=== PATIENT | female | born 1935 | race Caucasian/White ===

== ENCOUNTER 2017-05-19 09:15 | Emergency (ER) | payer MEDICARE, BC, MEDICAID ==
--- NOTE | 2017-05-19 09:17 | EDM.PDOC ---
ED HPI GENERAL MEDICAL PROBLEM - General Chief Complaint: Respiratory Problem Stated Complaint: IN BY AMBULANCE Time Seen by Provider: 05/19/17 09:17 Source of Information: Reports: Patient, EMS, Old Records, RN, RN Notes Reviewed History Limitations: Reports: No Limitations - History of Present Illness INITIAL COMMENTS - FREE TEXT/NARRATIVE: Arrives from [facility] by ambulance with c/o several days of progressively worsening shortness of breath. Pt admits to a "slight" cough. NH staff found pt to have oxygen saturations in the low 80's today, and they reported increasing lower extremity edema. Pt denies any pain, fever, chills, or any symptoms other than shortness of breath. Onset: Gradual Duration: Day(s): (3-5), Constant, Getting Worse Location: Reports: Chest Quality: Reports: Other (denies pain) Severity: Moderate Improves with: Reports: None Worsens with: Reports: None Associated Symptoms: Reports: No Other Symptoms Treatments STAFF RADIOGRAPHER: Reports: Breathing Treatments, Other Medication(s), Oxygen - Related Data Allergies Allergy/AdvReac Type Severity Reaction Status Date / Time furosemide [From Lasix] AdvReac Mild Nausea and Verified 11/29/14 11:53 Vomiting Home Meds: Home Meds Bumetanide [Bumex] 1 mg PO DAILY 10/27/13 [History] Carvedilol [Coreg] 12.5 mg PO BID 10/27/13 [History] Enalapril Maleate 5 mg PO DAILY 10/27/13 [History] Rosuvastatin Calcium [Crestor] 2.5 mg PO BEDTIME 10/27/13 [History] traZODone 100 mg PO BEDTIME 10/27/13 [History] Calcium Carbonate/Vitamin D3 [Calcium 600 + Vit D Tablet] 1 each PO DAILY [History] Acetaminophen [Tylenol] 650 mg PO Q4HR PRN 07/18/14 [History] Albuterol Sulfate 1 inhalation INH Q4HR PRN 07/18/14 [History] Clopidogrel [Plavix] 75 mg PO DAILY 07/18/14 [History] Famotidine 20 mg PO DAILY 07/18/14 [History] Cefpodoxime [Vantin] 200 mg PO BID #14 tab 07/22/14 [Rx] LORazepam [Ativan] 0.25 mg PO TID PRN #30 tablet 07/22/14 [Rx] predniSONE [predniSONE Dose Pack] 10 mg PO ASDIRECTED #12 dospk 07/22/14 [Rx] Acetaminophen [Tylenol] 650 mg PO Q4H 11/29/14 [History] Azithromycin [Zithromax] 250 mg PO DAILY 11/29/14 [History] Calcium Carbonate/Vitamin D3 [Calcium 500 mg Chewable Tablet] 500 mg PO DAILY PRN 11/29/14 [History] Loperamide [Imodium] 2 mg PO DAILY 11/29/14 [History] Sertraline [Zoloft] 50 mg PO DAILY 11/29/14 [History] Simethicone 1 tab PO TID 11/29/14 [History] Aspirin [Ecotrin] 1 tab PO DAILY #30 12/01/14 [Rx] Levofloxacin [Levaquin] 250 mg PO Q24H #7 tablet 12/01/14 [Rx] Metolazone [Zaroxolyn] 2.5 mg PO WEEKLY #4 tablet 12/01/14 [Rx] Past Medical History HEENT History: Reports: Hard of Hearing, Impaired Vision Cardiovascular History: Reports: CAD, Heart Failure, Hypertension, SOB on Exertion Respiratory History: Reports: COPD Musculoskeletal History: Reports: Osteoarthritis Psychiatric History: Reports: Dementia Social & Family History - Family History Family Medical History: Noncontributory - Tobacco Use Smoking Status *Q: Former Smoker Tobacco Use Within Last Twelve Months: Cigarettes Years of Tobacco use: 30 Packs/Tins Daily: 1 Used Tobacco, but Quit: Yes Month Tobacco Last Used: Second Hand Smoke Exposure: No - Alcohol Use Days Per Week of Alcohol Use: 0 - Recreational Drug Use Recreational Drug Use: No - Living Situation & Occupation Living situation: Reports: Extended Care Facility Occupation: Retired ED ROS GENERAL - Review of Systems Review Of Systems: ROS reveals no pertinent complaints other than HPI. ED EXAM, GENERAL - Physical Exam Exam: See Below Exam Limited By: No Limitations General Appearance: Alert, No Apparent Distress, Other (frail, elderly appearing female) Eye Exam: Bilateral Eye: Normal Inspection Ears: Normal External Exam, Hearing Loss (chronic/stable) Nose: Normal Inspection, Normal Mucosa, No Blood Throat/Mouth: Normal Inspection, Normal Lips, Normal Teeth, Normal Gums, Normal Oropharynx, Normal Voice, No Airway Compromise Head: Atraumatic, Normocephalic Neck: Normal Inspection, Supple, Non-Tender, Full Range of Motion. No: Lymphadenopathy (L), Lymphadenopathy (R) Respiratory/Chest: No Respiratory Distress, No Accessory Muscle Use, Chest Non- Tender, Decreased Breath Sounds, Crackles, Rales, Wheezing, Prolonged Expiration. No: Retractions, Splinting Cardiovascular: Regular Rate, Rhythm, No Gallop, No JVD, Other (1+ edema to B/L feet and ankles) GI/Abdominal: Normal Bowel Sounds, Soft, Non-Tender, No Distention, No Abnormal Bruit (Female) Exam: Deferred Rectal (Female) Exam: Deferred Back Exam: Normal Inspection. No: CVA Tenderness (L), CVA Tenderness (R) Extremities: Normal Range of Motion, Non-Tender Neurological: Alert, Oriented, CN II-XII Intact, No Motor/Sensory Deficits Psychiatric: Normal Mood Skin Exam: Warm, Dry, Intact, Normal Color, No Rash EKG INTERPRETATION EKG Date: 05/19/17 Time: 09:47 Rhythm: Other (Paced) Rate (Beats/Min): 70 Comparison: No Change Course - Vital Signs Last Recorded V/S: Last Vital Signs Temp 36.4 C 05/19/17 11:27 Pulse 71 05/19/17 11:27 Resp 18 05/19/17 11:27 BP 118/56 L 05/19/17 11:27 Pulse Ox 100 05/19/17 11:27 - Orders/Labs/Meds Orders: Active Orders 24 hr Category Date Time Status EKG 12 Lead [EKG Documentation Completion] [RC] STAT Care 05/19/17 09:24 Active Peripheral IV Care [RC] . DIRECTED Care 05/19/17 09:25 Active RT Aerosol Therapy [RC] ASDIRECTED Care 05/19/17 09:25 Active CULTURE BLOOD [BC] Stat Lab 05/19/17 09:38 Results CULTURE BLOOD [BC] Stat Lab 05/19/17 09:44 Received Sodium Chloride 0.9% [Saline Flush] Med 05/19/17 09:24 Active 10 ml FLUSH ASDIRECTED PRN Blood Culture x2 Reflex Set [OM.PC] Stat Oth 05/19/17 09:25 Ordered Peripheral IV Insertion Adult [OM.PC] Stat Oth 05/19/17 09:24 Ordered Medication Orders Sodium Chloride (Saline Flush) 10 ml FLUSH ASDIRECTED PRN PRN Reason: Keep Vein Open Last Admin: 05/19/17 09:43 Dose: 10 ml Labs: Laboratory Tests 05/19/17 05/19/17 05/19/17 Range/Units 09:44 09:44 09:44 WBC 9.0 (5.0-10.0) 10^3/uL RBC 3.30 L (4.2-5.4) 10^6/uL Hgb 11.0 L (12.0-16.0) g/dL Hct 34.2 L (37.0-47.0) % MCV 103.6 H D (80-100) fL MCH 33.3 (27.0-34.0) pg MCHC 32.2 L (33.0-35.0) g/dL Plt Count 166 D (150-450) 10^3/uL Neut % (Auto) 79.3 H (42.2-75.2) % Lymph % (Auto) 8.5 L (20.5-50.1) % [place] % (Auto) 10.3 H (2-8) % Eos % (Auto) 1.7 (1.0-3.0) % Baso % (Auto) 0.2 (0.0-1.0) % Sodium 132 L (135-145) mmol/L Potassium 3.9 (3.6-5.0) mmol/L Chloride 90 L (101-111) mmol/L Carbon Dioxide 35.0 H (21.0-31.0) mmol/L Anion Gap 10.9 BUN 42 H (7-18) mg/dL Creatinine 1.4 H (0.6-1.3) mg/dL Est Cr Clr Drug Dosing 28.00 mL/min Estimated GFR (MDRD) 36 BUN/Creatinine Ratio 30.00 Glucose 108 H (74-105) mg/dL Lactic Acid 0.8 (0.5-2.2) mmol/L Calcium 9.9 (8.4-10.2) mg/dl Total Bilirubin 0.8 (0.2-1.0) mg/dL AST 17 (10-42) IU/L ALT 10 (10-60) IU/L Alkaline Phosphatase 59 (42-121) IU/L B-Natriuretic Peptide 364 H (0-100) pg/ml Total Protein 6.4 L (6.7-8.2) g/dl Albumin 3.9 (3.2-5.5) g/dl Globulin 2.5 Albumin/Globulin Ratio 1.56 Urine Color (YELLOW) Urine Appearance (CLEAR) Urine pH (5.0-9.0) Ur Specific [place] (1.005-1.030) Urine Protein (NEGATIVE) Urine Glucose (UA) (NEGATIVE) Urine Ketones (NEGATIVE) Urine Occult Blood (NEGATIVE) Urine Nitrite (NEGATIVE) Urine Bilirubin (NEGATIVE) Urine Urobilinogen (0.2-1.0) mg/dL Ur Leukocyte Esterase (NEGATIVE) Urine RBC /HPF Urine WBC (0-5/HPF) /HPF Ur Epithelial Cells /HPF Urine Bacteria (0-FEW/HPF) /HPF Urine Mucus /LPF 05/19/17 Range/Units 11:18 WBC (5.0-10.0) 10^3/uL RBC (4.2-5.4) 10^6/uL Hgb (12.0-16.0) g/dL Hct (37.0-47.0) % MCV (80-100) fL MCH (27.0-34.0) pg MCHC (33.0-35.0) g/dL Plt Count (150-450) 10^3/uL Neut % (Auto) (42.2-75.2) % Lymph % (Auto) (20.5-50.1) % [place] % (Auto) (2-8) % Eos % (Auto) (1.0-3.0) % Baso % (Auto) (0.0-1.0) % Sodium (135-145) mmol/L Potassium (3.6-5.0) mmol/L Chloride (101-111) mmol/L Carbon Dioxide (21.0-31.0) mmol/L Anion Gap BUN (7-18) mg/dL Creatinine (0.6-1.3) mg/dL Est Cr Clr Drug Dosing mL/min Estimated GFR (MDRD) BUN/Creatinine Ratio Glucose (74-105) mg/dL Lactic Acid (0.5-2.2) mmol/L Calcium (8.4-10.2) mg/dl Total Bilirubin (0.2-1.0) mg/dL AST (10-42) IU/L ALT (10-60) IU/L Alkaline Phosphatase (42-121) IU/L B-Natriuretic Peptide (0-100) pg/ml Total Protein (6.7-8.2) g/dl Albumin (3.2-5.5) g/dl Globulin Albumin/Globulin Ratio Urine Color Yellow (YELLOW) Urine Appearance Clear (CLEAR) Urine pH 6.0 (5.0-9.0) Ur Specific [place] 1.010 (1.005-1.030) Urine Protein Negative (NEGATIVE) Urine Glucose (UA) Negative (NEGATIVE) Urine Ketones Negative (NEGATIVE) Urine Occult Blood Negative (NEGATIVE) Urine Nitrite Negative (NEGATIVE) Urine Bilirubin Negative (NEGATIVE) Urine Urobilinogen 0.2 (0.2-1.0) mg/dL Ur Leukocyte Esterase Negative (NEGATIVE) Urine RBC 0-5 /HPF Urine WBC 0-5 (0-5/HPF) /HPF Ur Epithelial Cells Few /HPF Urine Bacteria Rare (0-FEW/HPF) /HPF Urine Mucus Rare /LPF Meds: Medications Generic Name Dose Route Start Last Admin Trade Name Fregifty PRN Reason Stop Dose Admin Sodium Chloride 10 ml 05/19/17 09:24 05/19/17 09:43 Saline Flush FLUSH 10 ml ASDIRECTED PRN Administration Keep Vein Open Discontinued Medications Generic Name Dose Route Start Last Admin Trade Name Fregifty PRN Reason Stop Dose Admin Albuterol/Ipratropium 3 ml 05/19/17 09:25 05/19/17 09:42 Duoneb 3.0-0.5 Mg/3 Ml NEB 05/19/17 09:26 3 ml ONETIME ONE Administration Methylprednisolone Sodium Succinate 125 mg 05/19/17 09:25 05/19/17 09:42 Solu-Medrol IVPUSH 05/19/17 09:26 125 mg ONETIME ONE Administration - Radiology Interpretation Free Text/Narrative:: CXR: No acute process. Departure - Departure Time of Disposition: 12:32 Disposition: Home, Self-Care 01 Condition: Fair Clinical Impression: Acute exacerbation of chronic obstructive pulmonary disease (COPD) - Discharge Information Instructions: Chronic Obstructive Pulmonary Disease Exacerbation, [id number] Forms: ED Department Discharge Additional Instructions: Discharge orders provided to the [facility] by Dr. Kong. - My Orders Last 24 Hours: My Active Orders 05/19/17 09:24 EKG 12 Lead [EKG Documentation Completion] [RC] STAT Sodium Chloride 0.9% [Saline Flush] 10 ml FLUSH ASDIRECTED PRN Peripheral IV Insertion Adult [OM.PC] Stat 05/19/17 09:25 Peripheral IV Care [RC] . DIRECTED RT Aerosol Therapy [RC] ASDIRECTED Blood Culture x2 Reflex Set [OM.PC] Stat 05/19/17 09:38 CULTURE BLOOD [BC] Stat 05/19/17 09:44 CULTURE BLOOD [BC] Stat - Assessment/Plan Last 24 Hours: My Active Orders 05/19/17 09:24 EKG 12 Lead [EKG Documentation Completion] [RC] STAT Sodium Chloride 0.9% [Saline Flush] 10 ml FLUSH ASDIRECTED PRN Peripheral IV Insertion Adult [OM.PC] Stat 05/19/17 09:25 Peripheral IV Care [RC] . DIRECTED RT Aerosol Therapy [RC] ASDIRECTED Blood Culture x2 Reflex Set [OM.PC] Stat 05/19/17 09:38 CULTURE BLOOD [BC] Stat 05/19/17 09:44 CULTURE BLOOD [BC] Stat
[2017-05-19] MEDS ORDERED: Sodium Chloride 0.9% 10 ML Syringe FLUSH PRN (09:24)
[2017-05-19] MEDS ORDERED: Albuterol/Ipratropium 3.0-0.5 MG/3 ML Neb Soln NEB ONE (09:25)
[2017-05-19] MEDS ORDERED: methylPREDNISolone Sodium Succinate 125 MG/2 ML SDV IVPUSH ONE (09:25)
[2017-05-19 11:27] VITALS: BP 118/56
--- NOTE | 2017-05-25 18:16 | EKG ---
05/19/2017 - LEO CORMIER - FINDINGS: This 12-lead EKG shows a ventricular-paced rhythm with a ventricular rate of 70. No other comments are made. [facility] /[id number]
== END 2017-05-19 12:40 | disposition home or self-care (01) ==
LOC: DL.ED 09:15
DX: J44.1 Chronic obstructive pulmonary disease with (acute) exacerbation (principal); I11.0 Hypertensive heart disease with heart failure; I50.9 Heart failure, unspecified; Z91.040 Latex allergy status; Z79.899 Other long term (current) drug therapy; Z79.82 Long term (current) use of aspirin; Z87.891 Personal history of nicotine dependence
CPT/HCPCS: 36415; 71010; 80053; 81001; 83605; 83880; 85025; 87040; 93005; 93010; 94640; 96374; 99285; J2930; J7050; 99284

== ENCOUNTER 2017-06-15 10:33 | Inpatient (IN) | payer MEDICARE, BC, MEDICAID ==
[2017-06-15] MEDS ORDERED: Albuterol/Ipratropium 3.0-0.5 MG/3 ML Neb Soln NEB ONE (11:05)
--- NOTE | 2017-06-15 11:19 | EDM.PDOC ---
ED HPI GENERAL MEDICAL PROBLEM - General Stated Complaint: FROM [facility] Time Seen by Provider: 06/15/17 11:05 Source of Information: Reports: Half-Way Records, RN History Limitations: Reports: Altered Mental Status - History of Present Illness INITIAL COMMENTS - FREE TEXT/NARRATIVE: This 82 yo female patient was sent to the from [facility] due to increased sickness and diminished level of consciousness. The patient was seen last week by Tania Torre. Last week, the patient's influenza swab was negative , but the patient was started on Tamiflu. The patient has continued to get worse over the weekend. According to the [facility], the patient's oxygen level has been in the lower 80's until she was started on oxygen. The patient has not been responding normally today. Onset: Gradual Duration: Day(s):, Constant, Getting Worse Location: Reports: Generalized Quality: Reports: Other Severity: Severe Improves with: Reports: None Worsens with: Reports: None Associated Symptoms: Reports: Shortness of Breath, Weakness - Related Data Allergies Allergy/AdvReac Type Severity Reaction Status Date / Time furosemide [From Lasix] AdvReac Mild Nausea and Verified 11/29/14 11:53 Vomiting Home Meds: Home Meds Bumetanide [Bumex] 1 mg PO DAILY 10/27/13 [History] Carvedilol [Coreg] 12.5 mg PO BID 10/27/13 [History] Enalapril Maleate 5 mg PO DAILY 10/27/13 [History] Rosuvastatin Calcium [Crestor] 2.5 mg PO BEDTIME 10/27/13 [History] traZODone 100 mg PO BEDTIME 10/27/13 [History] Calcium Carbonate/Vitamin D3 [Calcium 600 + Vit D Tablet] 1 each PO DAILY [History] Acetaminophen [Tylenol] 650 mg PO Q4HR PRN 07/18/14 [History] Albuterol Sulfate 1 inhalation INH Q4HR PRN 07/18/14 [History] Clopidogrel [Plavix] 75 mg PO DAILY 07/18/14 [History] Famotidine 20 mg PO DAILY 07/18/14 [History] Cefpodoxime [Vantin] 200 mg PO BID #14 tab 07/22/14 [Rx] LORazepam [Ativan] 0.25 mg PO TID PRN #30 tablet 07/22/14 [Rx] predniSONE [predniSONE Dose Pack] 10 mg PO ASDIRECTED #12 dospk 07/22/14 [Rx] Acetaminophen [Tylenol] 650 mg PO Q4H 11/29/14 [History] Azithromycin [Zithromax] 250 mg PO DAILY 11/29/14 [History] Calcium Carbonate/Vitamin D3 [Calcium 500 mg Chewable Tablet] 500 mg PO DAILY PRN 11/29/14 [History] Loperamide [Imodium] 2 mg PO DAILY 11/29/14 [History] Sertraline [Zoloft] 50 mg PO DAILY 11/29/14 [History] Simethicone 1 tab PO TID 11/29/14 [History] Aspirin [Ecotrin] 1 tab PO DAILY #30 12/01/14 [Rx] Metolazone [Zaroxolyn] 2.5 mg PO WEEKLY #4 tablet 12/01/14 [Rx] Past Medical History HEENT History: Reports: Hard of Hearing, Impaired Vision Cardiovascular History: Reports: CAD, Heart Failure, Hypertension, SOB on Exertion Respiratory History: Reports: COPD Gastrointestinal History: Reports: Chronic Constipation Musculoskeletal History: Reports: Osteoarthritis Psychiatric History: Reports: Dementia - Past Surgical History GI Surgical History: Reports: Appendectomy, Cholecystectomy Female Surgical History: Reports: Breast Biopsy, Hysterectomy Social & Family History - Family History Family Medical History: Noncontributory - Tobacco Use Smoking Status *Q: Former Smoker Years of Tobacco use: 30 Packs/Tins Daily: 1 Used Tobacco, but Quit: Yes Month Tobacco Last Used: Second Hand Smoke Exposure: No - Caffeine Use Caffeine Use: Reports: Coffee - Alcohol Use Days Per Week of Alcohol Use: 0 - Recreational Drug Use Recreational Drug Use: No - Living Situation & Occupation Living situation: Reports: Extended Care Facility Occupation: Retired ED ROS GENERAL - Review of Systems Review Of Systems: ROS reveals no pertinent complaints other than HPI. ED EXAM, GENERAL - Physical Exam Exam: See Below Exam Limited By: Altered Mental Status General Appearance: Lethargic, Severe Distress, Thin Eye Exam: Bilateral Eye: PERRL Ears: Normal External Exam, Normal Canal, Hearing Grossly Normal, Normal TMs Nose: Normal Inspection, Normal Mucosa, No Blood Throat/Mouth: Normal Inspection, Normal Lips, Normal Teeth, Normal Gums, Normal Oropharynx, Normal Voice, No Airway Compromise Head: Atraumatic, Normocephalic Neck: Normal Inspection Respiratory/Chest: Decreased Breath Sounds, Rhonchi (diffuse) Cardiovascular: Normal Peripheral Pulses, Regular Rate, Rhythm, No Gallop, No JVD, No Murmur, No Rub GI/Abdominal: Normal Bowel Sounds, Soft, Non-Tender, No Organomegaly, No Distention, No Abnormal Bruit, No Mass, Pelvis Stable (Female) Exam: Deferred Rectal (Female) Exam: Deferred Extremities: Pedal Edema (mild) Skin Exam: Warm, Dry, Intact, Normal Color, No Rash Lymphatic: No Adenopathy Course - Vital Signs Last Recorded V/S: Last Vital Signs Temp 36.5 C 06/15/17 10:04 Pulse 71 06/15/17 10:04 Resp 24 H 06/15/17 10:04 BP 123/61 06/15/17 10:04 Pulse Ox 52 L 06/15/17 10:04 - Orders/Labs/Meds Orders: Active Orders 24 hr Category Date Time Status RT Aerosol Therapy [RC] ASDIRECTED Care 06/15/17 11:05 Active CULTURE BLOOD [BC] Stat Lab 06/15/17 10:55 Results CULTURE BLOOD [BC] Stat Lab 06/15/17 10:58 Received Blood Culture x2 Reflex Set [OM.PC] Stat Oth 06/15/17 10:56 Ordered Labs: Laboratory Tests 06/15/17 06/15/17 06/15/17 Range/Units 10:58 10:58 10:58 WBC 10.2 H (5.0-10.0) 10^3/uL RBC 3.52 L (4.2-5.4) 10^6/uL Hgb 12.0 (12.0-16.0) g/dL Hct 36.9 L (37.0-47.0) % MCV 104.8 H (80-100) fL MCH 34.1 H (27.0-34.0) pg MCHC 32.5 L (33.0-35.0) g/dL Plt Count 276 D (150-450) 10^3/uL Neut % (Auto) 71.6 (42.2-75.2) % Lymph % (Auto) 13.1 L (20.5-50.1) % [place] % (Auto) 15.0 H (2-8) % Eos % (Auto) 0.1 L (1.0-3.0) % Baso % (Auto) 0.2 (0.0-1.0) % Add Manual Diff Yes Neutrophils % (Manual) 70 (42-75) % Band Neutrophils % 2 % Lymphocytes % (Manual) 17 L (20-50) % Atypical Lymphs % 2 % Monocytes % (Manual) 9 H (2-8) % Stomatocytes 3+ marked Sodium 141 (135-145) mmol/L Potassium 3.6 (3.6-5.0) mmol/L Chloride 92 L (101-111) mmol/L Carbon Dioxide 40.0 H (21.0-31.0) mmol/L Anion Gap 12.6 BUN 70 H D (7-18) mg/dL Creatinine 1.6 H (0.6-1.3) mg/dL Est Cr Clr Drug Dosing 23.55 mL/min Estimated GFR (MDRD) 31 BUN/Creatinine Ratio 43.75 Glucose 152 H (74-105) mg/dL Lactic Acid 1.8 (0.5-2.2) mmol/L Calcium 10.7 H (8.4-10.2) mg/dl Total Bilirubin 0.9 (0.2-1.0) mg/dL AST 33 (10-42) IU/L ALT 18 (10-60) IU/L Alkaline Phosphatase 59 (42-121) IU/L Troponin I (0.00-0.02) ng/ml B-Natriuretic Peptide 1040 H (0-100) pg/ml Total Protein 7.5 (6.7-8.2) g/dl Albumin 3.8 (3.2-5.5) g/dl Globulin 3.7 Albumin/Globulin Ratio 1.03 Urine Color (YELLOW) Urine Appearance (CLEAR) Urine pH (5.0-9.0) Ur Specific [place] (1.005-1.030) Urine Protein (NEGATIVE) Urine Glucose (UA) (NEGATIVE) Urine Ketones (NEGATIVE) Urine Occult Blood (NEGATIVE) Urine Nitrite (NEGATIVE) Urine Bilirubin (NEGATIVE) Urine Urobilinogen (0.2-1.0) mg/dL Ur Leukocyte Esterase (NEGATIVE) Urine RBC /HPF Urine WBC (0-5/HPF) /HPF Ur Epithelial Cells /HPF Urine Bacteria (0-FEW/HPF) /HPF 06/15/17 06/15/17 Range/Units 10:58 11:45 WBC (5.0-10.0) 10^3/uL RBC (4.2-5.4) 10^6/uL Hgb (12.0-16.0) g/dL Hct (37.0-47.0) % MCV (80-100) fL MCH (27.0-34.0) pg MCHC (33.0-35.0) g/dL Plt Count (150-450) 10^3/uL Neut % (Auto) (42.2-75.2) % Lymph % (Auto) (20.5-50.1) % [place] % (Auto) (2-8) % Eos % (Auto) (1.0-3.0) % Baso % (Auto) (0.0-1.0) % Add Manual Diff Neutrophils % (Manual) (42-75) % Band Neutrophils % % Lymphocytes % (Manual) (20-50) % Atypical Lymphs % % Monocytes % (Manual) (2-8) % Stomatocytes Sodium (135-145) mmol/L Potassium (3.6-5.0) mmol/L Chloride (101-111) mmol/L Carbon Dioxide (21.0-31.0) mmol/L Anion Gap BUN (7-18) mg/dL Creatinine (0.6-1.3) mg/dL Est Cr Clr Drug Dosing mL/min Estimated GFR (MDRD) BUN/Creatinine Ratio Glucose (74-105) mg/dL Lactic Acid (0.5-2.2) mmol/L Calcium (8.4-10.2) mg/dl Total Bilirubin (0.2-1.0) mg/dL AST (10-42) IU/L ALT (10-60) IU/L Alkaline Phosphatase (42-121) IU/L Troponin I 0.06 H* (0.00-0.02) ng/ml B-Natriuretic Peptide (0-100) pg/ml Total Protein (6.7-8.2) g/dl Albumin (3.2-5.5) g/dl Globulin Albumin/Globulin Ratio Urine Color Light yellow (YELLOW) Urine Appearance Clear (CLEAR) Urine pH 5.0 (5.0-9.0) Ur Specific [place] 1.020 (1.005-1.030) Urine Protein Negative (NEGATIVE) Urine Glucose (UA) Negative (NEGATIVE) Urine Ketones Negative (NEGATIVE) Urine Occult Blood Negative (NEGATIVE) Urine Nitrite Negative (NEGATIVE) Urine Bilirubin Negative (NEGATIVE) Urine Urobilinogen 0.2 (0.2-1.0) mg/dL Ur Leukocyte Esterase Negative (NEGATIVE) Urine RBC 0-5 /HPF Urine WBC 0-5 (0-5/HPF) /HPF Ur Epithelial Cells Rare /HPF Urine Bacteria Rare (0-FEW/HPF) /HPF Meds: Medications Discontinued Medications Generic Name Dose Route Start Last Admin Trade Name Freq PRN Reason Stop Dose Admin Albuterol/Ipratropium 3 ml 06/15/17 11:05 06/15/17 11:16 Duoneb 3.0-0.5 Mg/3 Ml NEB 06/15/17 11:06 3 ml ONETIME ONE Administration Departure - Departure Time of Disposition: 12:50 Disposition: Admitted As Inpatient 64 Condition: Fair Clinical Impression: Chronic obstructive pulmonary disease (COPD) Qualifiers: COPD type: unspecified COPD Qualified Code(s): J44.9 - Chronic obstructive pulmonary disease, unspecified Acute exacerbation of CHF (congestive heart failure) Qualifiers: Congestive heart failure type: unspecified congestive heart failure type Qualified Code(s): I50.9 - Heart failure, unspecified - Discharge Information Care Plan Goals: Discussed the history, examination, lab, EKG and x-ray results with Dr. Gallardo. Dr. Gallardo accepted the patient for continued evaluation and further care as an inpatient at [facility]. - My Orders Last 24 Hours: My Active Orders 06/15/17 10:55 CULTURE BLOOD [BC] Stat 06/15/17 10:56 Blood Culture x2 Reflex Set [OM.PC] Stat 06/15/17 10:58 CULTURE BLOOD [BC] Stat 06/15/17 11:05 RT Aerosol Therapy [RC] ASDIRECTED - Assessment/Plan Last 24 Hours: My Active Orders 06/15/17 10:55 CULTURE BLOOD [BC] Stat 06/15/17 10:56 Blood Culture x2 Reflex Set [OM.PC] Stat 06/15/17 10:58 CULTURE BLOOD [BC] Stat 06/15/17 11:05 RT Aerosol Therapy [RC] ASDIRECTED
[2017-06-15 11:28] LABS: ANION GAP 12.6
--- NOTE | 2017-06-15 11:29 | CR ---
Clinical history: 82-year-old female with cough and shortness of breath. Interpretation: No acute new cardiopulmonary abnormality identified in the interval since 19 May 2017 film. Sternotomy wires, chronic mild cardiomegaly and cardiac pacemaker (leads intact). External cardiac mo nitor leads. O2 cannula. No new signs of alveolar edema or dependent pleural fluid accumulation. No new lung mass, hilar lymphadenopathy or focal lobar pneumonia/atelectasis. No pneumothorax.
[2017-06-15 13:21] LABS: BASE EXCESS ARTERIAL 11 mmol/L ((-2)-(+3)); BICARBONATE,ARTERIAL 39.9 mmol/L (22-26); O2 DELIVERY DEVICE NASAL CANNULA; O2 SATURATION ARTERIAL 100 % (95-100); PO2 ARTERIAL 179 mmHg (70-100)
[2017-06-15 13:23] LABS: O2 FLOW RATE 10; PCO2 ARTERIAL 80 mmHg (35-45)
[2017-06-15 13:24] LABS: ALLEN TEST LB
[2017-06-15] MEDS ORDERED: methylPREDNISolone Sodium Succinate 40 MG/1 ML SDV IVPUSH SCH (14:30)
[2017-06-15] MEDS ORDERED: Azithromycin 500 MG in Sodium Chloride 0.9% 250 ML IV SCH (14:45)
[2017-06-15] MEDS ORDERED: Piperacillin/Tazobactam 2.25 GM in Sodium Chloride 0.9% 50 ML IV SCH (14:45)
--- NOTE | 2017-06-15 14:49 | PCM.HP ---
H&P History of Present Illness - General Date of Service: 06/15/17 Admit Problem/Dx: Admission Diagnosis/Problem Admission Diagnosis/Problem Respiratory failure Source of Information: Family, Provider (ER), Other (review of [facility] chart) - History of Present Illness Initial Comments - Free Text/Narative: the patient is an 82-year-old lady with a history of ischemic cardiomyopathy, COPD. She lives in a halfway. In the past 2 days she was noted to have cough, fever, symptoms of upper respiratory tract infection. She was treated with Tamiflu and azithromycin empirically. She has noted to have decreased responsiveness and transferred to the emergency room. - Related Data Allergies/Adverse Reactions: Allergies Allergy/AdvReac Type Severity Reaction Status Date / Time furosemide [From Lasix] AdvReac Mild Nausea and Verified 11/29/14 11:53 Vomiting Home Medications: Home Meds Bumetanide [Bumex] 1 mg PO DAILY 10/27/13 [History] Carvedilol [Coreg] 12.5 mg PO BID 10/27/13 [History] Enalapril Maleate 5 mg PO DAILY 10/27/13 [History] Rosuvastatin Calcium [Crestor] 2.5 mg PO BEDTIME 10/27/13 [History] traZODone 50 mg PO BEDTIME 10/27/13 [History] Calcium Carbonate/Vitamin D3 [Calcium 600 + Vit D Tablet] 1 each PO DAILY [History] Acetaminophen [Tylenol] 650 mg PO Q4HR PRN 07/18/14 [History] Albuterol Sulfate 1 inhalation INH Q4HR PRN 07/18/14 [History] Clopidogrel [Plavix] 75 mg PO DAILY 07/18/14 [History] Famotidine 20 mg PO DAILY 07/18/14 [History] Cefpodoxime [Vantin] 200 mg PO BID #14 tab 07/22/14 [Rx] LORazepam [Ativan] 0.25 mg PO TID PRN #30 tablet 07/22/14 [Rx] predniSONE [predniSONE Dose Pack] 10 mg PO ASDIRECTED #12 dospk 07/22/14 [Rx] Acetaminophen [Tylenol] 650 mg PO Q4H 11/29/14 [History] Azithromycin [Zithromax] 250 mg PO DAILY 11/29/14 [History] Calcium Carbonate/Vitamin D3 [Calcium 500 mg Chewable Tablet] 500 mg PO DAILY PRN 11/29/14 [History] Loperamide [Imodium] 2 mg PO DAILY 11/29/14 [History] Sertraline [Zoloft] 75 mg PO DAILY 11/29/14 [History] Simethicone 1 tab PO TID 11/29/14 [History] Aspirin [Ecotrin] 1 tab PO DAILY #30 12/01/14 [Rx] Metolazone [Zaroxolyn] 2.5 mg PO WEEKLY #4 tablet 12/01/14 [Rx] Past Medical History HEENT History: Reports: Hard of Hearing, Impaired Vision Cardiovascular History: Reports: CAD, Heart Failure, Hypertension, SOB on Exertion Respiratory History: Reports: COPD Gastrointestinal History: Reports: Chronic Constipation Musculoskeletal History: Reports: Osteoarthritis Psychiatric History: Reports: Dementia - Past Surgical History GI Surgical History: Reports: Appendectomy, Cholecystectomy Female Surgical History: Reports: Breast Biopsy, Hysterectomy Social & Family History - Family History Family Medical History: Noncontributory - Tobacco Use Smoking Status *Q: Former Smoker Years of Tobacco use: 30 Packs/Tins Daily: 1 Used Tobacco, but Quit: Yes Month Tobacco Last Used: Second Hand Smoke Exposure: No - Caffeine Use Caffeine Use: Reports: Coffee - Alcohol Use Days Per Week of Alcohol Use: 0 - Recreational Drug Use Recreational Drug Use: No - Living Situation & Occupation Living situation: Reports: Extended Care Facility Occupation: Retired H&P Review of Systems - Review of Systems: Review Of Systems: See Below General: Reports: Fever, Chills Pulmonary: Reports: Shortness of Breath Cardiovascular: Denies: Chest Pain Gastrointestinal: Denies: Abdominal Pain Neurological: Reports: Other (lethargic) Exam - Exam Exam: See Below - Vital Signs Vital Signs: Last Vital Signs Temp 36.5 C 06/15/17 10:04 Pulse 71 06/15/17 10:04 Resp 24 H 06/15/17 10:04 BP 123/61 06/15/17 10:04 Pulse Ox 52 L 06/15/17 10:04 Weight: 72.575 kg - Exam General: Obtunded Neck: Supple Lungs: Normal Respiratory Effort, Decreased Breath Sounds Cardiovascular: Regular Rate, Regular Rhythm GI/Abdominal Exam: Normal Bowel Sounds, Soft, Non-Tender Extremities: Pedal Edema (1+ bilateral) Neuro Extensive - Mental Status: Other (initially completely unresponsive, later noted to open her eyes spontaneously, still not following commands.) - Patient Data Lab Results Last 24 hrs: chest x-ray per my reading shows no obvious congestive heart failure or significant effusion Result Diagrams: 06/15/17 10:58 06/15/17 10:58 EKG INTERPRETATION EKG Date: 06/15/17 EKG Interpretation Comments: V paced rhythm *Q Meaningful Use (ADM) - VTE *Q VTE Criteria *Q: - Stroke *Q Stroke Criteria *Q: - AMI *Q AMI Criteria *Q: - Problem List (1) Respiratory failure SNOMED Code(s): 693115534 ICD Code: J96.90 - RESPIRATORY FAILURE, UNSP, UNSP W HYPOXIA OR HYPERCAPNIA Status: Acute Current Visit: Yes (2) Acute exacerbation of chronic obstructive pulmonary disease (COPD) SNOMED Code(s): 630623213 ICD Code: J44.1 - CHRONIC OBSTRUCTIVE PULMONARY DISEASE W (ACUTE) EXACERBATION Status: Acute Current Visit: No (3) CHF, Congestive heart failure SNOMED Code(s): 33191414 ICD Code: I50.9 - HEART FAILURE, UNSPECIFIED Status: Acute Current Visit : No (4) Pneumonia SNOMED Code(s): 718560800 ICD Code: J18.9 - PNEUMONIA, UNSPECIFIED ORGANISM Status: Acute Current Visit: No Onset Date: 11/07/13 (5) Age-related cognitive decline SNOMED Code(s): 776738311 ICD Code: R41.81 - AGE-RELATED COGNITIVE DECLINE Status: Chronic Current Visit: No Problem List Initiated/Reviewed/Updated: Yes Orders Last 24hrs: Active Orders 24 hr Category Date Time Status TROPONIN I [CHEM] Timed Lab 06/15/17 18:00 Ordered Azithromycin [Zithromax] 500 mg Med 06/15/17 14:45 Active Sodium Chloride 0.9% [Normal Saline] 250 ml IV Q24H Piperacillin/Tazobactam [Zosyn] 2.25 gm Med 06/15/17 14:45 Active Sodium Chloride 0.9% [Normal Saline] 50 ml IV Q6H Medication Orders Acetaminophen (Tylenol) 650 mg PO Q4H PRN PRN Reason: Pain (Mild 1-3)/fever Albuterol/Ipratropium (Duoneb 3.0-0.5 Mg/3 Ml) 3 ml NEB Q6H [facility] Aspirin (Halfprin) 81 mg PO DAILY [facility] Clopidogrel Bisulfate (Plavix) 75 mg PO DAILY [facility] Famotidine (Pepcid) 20 mg PO DAILY [facility] Heparin Sodium (Porcine) (Heparin Sodium) 5,000 units SUBCUT Q8HR [facility] Sodium Chloride (Normal Saline) 1,000 mls @ 75 mls/hr IV ASDIRECTED [facility] Azithromycin 500 mg/ Sodium (Chloride) 250 mls @ 250 mls/hr IV Q24H [facility] Piperacillin Sod/Tazobactam (Sod 2.25 gm/ Sodium Chloride) 50 mls @ 100 mls/hr IV Q6H [facility] Lorazepam (Ativan) 0.25 mg PO TID PRN PRN Reason: Anxiety Methylprednisolone Sodium Succinate (Solu-Medrol) 40 mg IVPUSH Q8H [facility] Non-Formulary Medication (Bumetanide [Bumex]) 1 mg PO DAILY [facility] Non-Formulary Medication (Carvedilol [Coreg]) 12.5 mg PO BID [facility] Sodium Chloride (Saline Flush) 10 ml FLUSH ASDIRECTED PRN PRN Reason: Keep Vein Open Assessment/Plan Comment:: the patient is an 82-year-old lady who lives in a halfway. She does have a history of dementia but normally she is walking with her walker and visiting with family. in the past few days the patient was noted to have cough, fever. There was concern about anxiety and insomnia. Started empirically on Tamiflu although testing was negative. 15 June the patient was noted to have minimal responsiveness and she was transferred to the emergency room. The patient is unable to give history. Family is at bedside. Also discussed with the emergency room physician #1 acute hypoxemic, hypercarbic respiratory failure Causing acute encephalopathy I started the patient on BiPAP Treat acute COPD exacerbation #2 acute encephalopathy secondary to hypercarbic respiratory failure There is some sign of improvement here We'll monitor. this is likely due to her respiratory status, much less likely acute stroke, for now hold CT of the head #3 acute COPD exacerbation With hypercarbic, hypoxemic respiratory failure Start Pulmicort, scheduled DuoNeb BiPAP Systemic steroids with Solu-Medrol #4 history of systolic congestive heart failure with ischemic cardiomyopathy, For now the patient appears to have elevated BUN/creatinine. Due to her acute illness I think she is more dehydrated and in acute heart failure. Give IV fluids. Resume diuretics from tomorrow continue Coreg #5 acute renal failure due to dehydration due to encephalopathy Will hold CESARIO inhibitor IV hydration Follow BMP in the morning #6 history of coronary artery disease Continue aspirin, Plavix #7 DVT prophylaxis with subcutaneous heparin #8 discussed CODE STATUS with patient's family\ At this point it would like DO NOT RESUSCITATE, DO NOT INTUBATE, no feeding tube But they would like to attempt medical treatment, including BiPAP
[2017-06-15] MEDS: Piperacillin/Tazobactam 2.25 GM in Sodium Chloride 0.9% 50 ML IV SCH ×2 (15:55→23:00)
[2017-06-15] MEDS: Sodium Chloride 0.9% 1,000 ML IV SCH (15:56)
[2017-06-15] MEDS: methylPREDNISolone Sodium Succinate 40 MG/1 ML SDV IVPUSH SCH ×2 (16:02→22:59)
[2017-06-15] MEDS: Albuterol/Ipratropium 3.0-0.5 MG/3 ML Neb Soln NEB SCH ×2 (16:40→22:54)
[2017-06-15] MEDS: Azithromycin 500 MG in Sodium Chloride 0.9% 250 ML IV SCH (16:48)
[2017-06-15] MEDS: Budesonide 0.5 MG/2 ML Neb Susp NEB SCH (17:05)
[2017-06-15] MEDS: Carvedilol 6.25 MG Tab PO SCH (22:55)
[2017-06-15] MEDS: Heparin Sodium 5,000 Units/ML Vial SUBCUT SCH (22:59)
[2017-06-16] MEDS: Albuterol/Ipratropium 3.0-0.5 MG/3 ML Neb Soln NEB SCH ×4 (04:52→21:17)
[2017-06-16] MEDS: Piperacillin/Tazobactam 2.25 GM in Sodium Chloride 0.9% 50 ML IV SCH ×4 (04:52→23:59)
[2017-06-16 07:02] LABS: ANION GAP 15.2
[2017-06-16] MEDS: Heparin Sodium 5,000 Units/ML Vial SUBCUT SCH ×2 (07:22→13:47)
[2017-06-16] MEDS: methylPREDNISolone Sodium Succinate 40 MG/1 ML SDV IVPUSH SCH ×3 (07:23→23:58)
[2017-06-16] MEDS: Sodium Chloride 0.9% 1,000 ML IV SCH (07:41)
[2017-06-16] MEDS: Clopidogrel 75 MG Tab PO SCH (07:59)
[2017-06-16] MEDS: Aspirin 81 MG Tab.EC PO SCH (08:00)
[2017-06-16] MEDS: Carvedilol 6.25 MG Tab PO SCH ×2 (08:00→21:17)
[2017-06-16] MEDS: Famotidine 20 MG Tab PO SCH (08:00)
[2017-06-16] MEDS: Acetaminophen 325 MG Tab PO PRN (08:01)
[2017-06-16] MEDS ORDERED: Bumetanide 1 MG Tab PO SCH (09:00)
[2017-06-16] MEDS ORDERED: Albuterol/Ipratropium 3.0-0.5 MG/3 ML Neb Soln ONE (10:39)
--- NOTE | 2017-06-16 12:27 | PCM.PN ---
- General Info Date of Service: 06/16/17 Admission Dx/Problem (Free Text): Admission Diagnosis/Problem Admission Diagnosis/Problem Respiratory failure Subjective Update: Has remained hemodynamically stable, more communicative Appears to be awake, alert, tolerating BiPAP No complains of pain or shortness of breath. Quickly desaturates when off BiPAP - Review of Systems General: Reports: Weakness. Denies: Fever Pulmonary: Reports: Shortness of Breath. Denies: Cough Cardiovascular: Denies: Chest Pain Gastrointestinal: Denies: Abdominal Pain - Patient Data Vitals - Most Recent: Last Vital Signs Temp 36.7 C 06/16/17 11:00 Pulse 70 06/16/17 11:00 Resp 20 06/16/17 11:00 BP 131/60 06/16/17 11:00 Pulse Ox 96 06/16/17 11:00 Weight - Most Recent: 69.853 kg I&O - Last 24 Hours: Intake & Output 06/15/17 06/16/17 06/16/17 22:59 06:59 14:59 Intake Total 480 875 Output Total 2050 Balance 480 -1175 Lab Results Last 24 Hours: Laboratory Results - last 24 hr 06/15/17 06/16/17 06/16/17 Range/Units 18:08 06:12 06:12 WBC 12.5 H (5.0-10.0) 10^3/uL RBC 3.40 L (4.2-5.4) 10^6/uL Hgb 11.4 L (12.0-16.0) g/dL Hct 36.1 L (37.0-47.0) % MCV 106.2 H (80-100) fL MCH 33.5 (27.0-34.0) pg MCHC 31.6 L (33.0-35.0) g/dL Plt Count 266 (150-450) 10^3/uL Neut % (Auto) 86.5 H (42.2-75.2) % Lymph % (Auto) 7.6 L (20.5-50.1) % [place] % (Auto) 5.9 (2-8) % Eos % (Auto) 0.0 L (1.0-3.0) % Baso % (Auto) 0.0 (0.0-1.0) % Add Manual Diff Sodium 141 (135-145) mmol/L Potassium 3.2 L (3.6-5.0) mmol/L Chloride 92 L (101-111) mmol/L Carbon Dioxide 37.0 H (21.0-31.0) mmol/L Anion Gap 15.2 BUN 64 H (7-18) mg/dL Creatinine 1.4 H (0.6-1.3) mg/dL Est Cr Clr Drug Dosing 24.74 mL/min Estimated GFR (MDRD) 36 Glucose 126 H (74-105) mg/dL Calcium 10.3 H (8.4-10.2) mg/dl Troponin I 0.05 H* (0.00-0.02) ng/ml Med Orders - Current: Current Medications Acetaminophen (Tylenol) 650 mg PO Q4H PRN PRN Reason: Pain (Mild 1-3)/fever Last Admin: 06/16/17 08:01 Dose: 650 mg Albuterol/Ipratropium (Duoneb 3.0-0.5 Mg/3 Ml) 3 ml NEB Q6H [facility] Last Admin: 06/16/17 04:52 Dose: 3 ml Aspirin (Halfprin) 81 mg PO DAILY [facility] Last Admin: 06/16/17 08:00 Dose: 81 mg Budesonide (Pulmicort) 0.5 mg NEB BIDRT [facility] Last Admin: 06/15/17 17:05 Dose: 0.5 mg Bumetanide (Bumex) 1 mg PO DAILY [facility] Last Admin: 06/16/17 08:00 Dose: 1 mg Carvedilol (Coreg) 12.5 mg PO BID [facility] Last Admin: 06/16/17 08:00 Dose: 12.5 mg Clopidogrel Bisulfate (Plavix) 75 mg PO DAILY [facility] Last Admin: 06/16/17 07:59 Dose: 75 mg Famotidine (Pepcid) 20 mg PO DAILY [facility] Last Admin: 06/16/17 08:00 Dose: 20 mg Heparin Sodium (Porcine) (Heparin Sodium) 5,000 units SUBCUT Q8HR [facility] Last Admin: 06/16/17 07:22 Dose: 5,000 units Sodium Chloride (Normal Saline) 1,000 mls @ 75 mls/hr IV ASDIRECTED [facility] Last Admin: 06/16/17 07:41 Dose: 75 mls/hr Piperacillin Sod/Tazobactam (Sod 2.25 gm/ Sodium Chloride) 50 mls @ 100 mls/hr IV Q6H [facility] Last Admin: 06/16/17 11:11 Dose: 100 mls/hr Azithromycin 500 mg/ Sodium (Chloride) 250 mls @ 250 mls/hr IV Q24H [facility] Last Admin: 06/15/17 16:48 Dose: 250 mls/hr Lorazepam (Ativan) 0.25 mg PO TID PRN PRN Reason: Anxiety Methylprednisolone Sodium Succinate (Solu-Medrol) 40 mg IVPUSH Q8H [facility] Last Admin: 06/16/17 07:23 Dose: 40 mg Potassium Chloride (Klor-Con 10) 40 meq PO BIDMEALS [facility] Sodium Chloride (Saline Flush) 10 ml FLUSH ASDIRECTED PRN PRN Reason: Keep Vein Open Discontinued Medications Albuterol/Ipratropium (Duoneb 3.0-0.5 Mg/3 Ml) 3 ml NEB ONETIME ONE Stop: 06/15/17 11:06 Last Admin: 06/15/17 11:16 Dose: 3 ml Albuterol/Ipratropium (Duoneb 3.0-0.5 Mg/3 Ml) Confirm Administered Dose 3 ml .ROUTE .STK-MED ONE Stop: 06/16/17 10:40 Azithromycin 500 mg/ Sodium (Chloride) 250 mls @ 250 mls/hr IV Q24H [facility] Last Admin: 06/15/17 16:05 Dose: Not Given Piperacillin Sod/Tazobactam (Sod 2.25 gm/ Sodium Chloride) 50 mls @ 100 mls/hr IV Q6H [facility] Last Admin: 06/15/17 16:06 Dose: Not Given Methylprednisolone Sodium Succinate (Solu-Medrol) 40 mg IVPUSH Q8H [facility] Last Admin: 06/15/17 16:05 Dose: Not Given - Exam General: Alert, Oriented Neck: Supple Lungs: Decreased Breath Sounds. No: Normal Respiratory Effort (Increased) GI/Abdominal Exam: Normal Bowel Sounds, Soft, Non-Tender Extremities: No Pedal Edema Psy/Mental Status: Alert - Problem List & Annotations (1) Respiratory failure SNOMED Code(s): 274016504 Code(s): J96.90 - RESPIRATORY FAILURE, UNSP, UNSP W HYPOXIA OR HYPERCAPNIA Status: Acute Current Visit: Yes (2) Acute exacerbation of chronic obstructive pulmonary disease (COPD) SNOMED Code(s): 702232231 Code(s): J44.1 - CHRONIC OBSTRUCTIVE PULMONARY DISEASE W (ACUTE) EXACERBATION Status: Acute Current Visit: No (3) CHF, Congestive heart failure SNOMED Code(s): 74881309 Code(s): I50.9 - HEART FAILURE, UNSPECIFIED Status: Acute Current Visit: No (4) Pneumonia SNOMED Code(s): 711752746 Code(s): J18.9 - PNEUMONIA, UNSPECIFIED ORGANISM Status: Acute Current Visit: No Onset Date: 11/07/13 (5) Age-related cognitive decline SNOMED Code(s): 189349584 Code(s): R41.81 - AGE-RELATED COGNITIVE DECLINE Status: Chronic Current Visit: No - Problem List Review Problem List Initiated/Reviewed/Updated: Yes - My Orders Last 24 Hours: My Active Orders 06/15/17 14:00 methylPREDNISolone Sod Succ [Solu-MEDROL] 40 mg IVPUSH Q8H 06/15/17 14:49 RT Aerosol Therapy [RC] 0230,0830,1430,2030 06/15/17 15:00 Azithromycin [Zithromax] 500 mg Sodium Chloride 0.9% [Normal Saline] 250 ml IV Q24H 06/15/17 16:00 Piperacillin/Tazobactam [Zosyn] 2.25 gm Sodium Chloride 0.9% [Normal Saline] 50 ml IV Q6H 06/15/17 18:00 Budesonide [Pulmicort] 0.5 mg NEB BIDRT 06/16/17 12:30 Potassium Chloride [Klor-Con 10] 40 meq PO BIDMEALS - Plan Plan:: the patient is an 82-year-old lady who lives in a halfway. She does have a history of dementia but normally she is walking with her walker and visiting with family. in the past few days the patient was noted to have cough, fever. There was concern about anxiety and insomnia. Started empirically on Tamiflu although testing was negative. 15 June the patient was noted to have minimal responsiveness and she was transferred to the emergency room. The patient is unable to give history. Family is at bedside. Also discussed with the emergency room physician #1 acute hypoxemic, hypercarbic respiratory failure Causing acute encephalopathy I started the patient on BiPAP improved Treat acute COPD exacerbation #2 acute encephalopathy secondary to hypercarbic respiratory failure There is some sign of improvement here We'll monitor. try to taper off bipap and use NC with target oxygen sats 88-90% #3 acute COPD exacerbation With hypercarbic, hypoxemic respiratory failure treat with Pulmicort, scheduled DuoNeb Systemic steroids with Solu-Medrol treat with azithro, zosyn empirically #4 history of systolic congestive heart failure with ischemic cardiomyopathy, For now the patient appears to have elevated BUN/creatinine. Due to her acute illness I think she is more dehydrated than in acute heart failure. Give IV fluids. hold diuretics continue Coreg #5 acute renal failure due to dehydration due to encephalopathy Will hold CESARIO inhibitor IV hydration Follow BMP in the morning #6 history of coronary artery disease Continue aspirin, Plavix #7 DVT prophylaxis with subcutaneous heparin #8 discussed CODE STATUS with patient's family on admission and today At this point it would like DO NOT RESUSCITATE, DO NOT INTUBATE, no feeding tube But they would like to attempt medical treatment, including BiPAP
[2017-06-16] MEDS: Potassium Chloride 10 MEQ Tab.ER PO SCH ×2 (13:49→18:13)
[2017-06-16] MEDS: Azithromycin 500 MG in Sodium Chloride 0.9% 250 ML IV SCH (14:00)
[2017-06-16] MEDS: Ciprofloxacin 0.3% Ophth Soln 2.5 ML Bottle EYEBOTH SCH ×2 (14:00→21:28)
--- NOTE | 2017-06-16 14:40 | EKG ---
06/15/2017- LEO CORMIER - FINDINGS: EKG per my reading shows ventricular paced rhythm. [facility] /[id number]
[2017-06-16] MEDS: Budesonide 0.5 MG/2 ML Neb Susp NEB SCH (18:05)
[2017-06-17] MEDS: Sodium Chloride 0.9% 1,000 ML IV SCH (01:14)
[2017-06-17 07:04] LABS: ANION GAP 13.8
[2017-06-17] MEDS: Albuterol/Ipratropium 3.0-0.5 MG/3 ML Neb Soln NEB SCH ×5 (08:32→17:50)
[2017-06-17] MEDS: Piperacillin/Tazobactam 2.25 GM in Sodium Chloride 0.9% 50 ML IV SCH ×2 (08:33→10:43)
[2017-06-17] MEDS: methylPREDNISolone Sodium Succinate 40 MG/1 ML SDV IVPUSH SCH ×3 (08:34→22:04)
[2017-06-17] MEDS: Heparin Sodium 5,000 Units/ML Vial SUBCUT SCH (08:38)
[2017-06-17] MEDS: Budesonide 0.5 MG/2 ML Neb Susp NEB SCH ×3 (09:06→17:50)
[2017-06-17] MEDS: Potassium Chloride 10 MEQ Tab.ER PO SCH ×2 (09:07→17:49)
[2017-06-17] MEDS: Aspirin 81 MG Tab.EC PO SCH (09:07)
[2017-06-17] MEDS: Clopidogrel 75 MG Tab PO SCH (09:07)
[2017-06-17] MEDS: Famotidine 20 MG Tab PO SCH (09:08)
[2017-06-17] MEDS: Carvedilol 6.25 MG Tab PO SCH ×2 (09:10→17:49)
[2017-06-17] MEDS: Ciprofloxacin 0.3% Ophth Soln 2.5 ML Bottle EYEBOTH SCH ×4 (09:12→18:01)
--- NOTE | 2017-06-17 10:41 | PCM.PN ---
- General Info Admission Dx/Problem (Free Text): Admission Diagnosis/Problem Admission Diagnosis/Problem Respiratory failure Subjective Update: Patient was weaned off from BiPAP She appears somewhat confused Appears lethargic Still looks a little short of breath. She is now on supplemental oxygen by nasal cannula - Review of Systems General: Reports: Weakness Pulmonary: Reports: Shortness of Breath Cardiovascular: Reports: Dyspnea on Exertion - Patient Data Vitals - Most Recent: Last Vital Signs Temp 36.6 C 06/17/17 07:00 Pulse 70 06/17/17 09:10 Resp 20 06/17/17 07:00 BP 149/58 H 06/17/17 09:10 Pulse Ox 92 L 06/17/17 07:00 Weight - Most Recent: 70.959 kg I&O - Last 24 Hours: Intake & Output 06/16/17 06/17/17 06/17/17 22:59 06:59 14:59 Output Total 850 Balance -850 Lab Results Last 24 Hours: Laboratory Results - last 24 hr 06/17/17 06/17/17 Range/Units 06:13 06:13 WBC 19.4 H (5.0-10.0) 10^3/uL RBC 3.43 L (4.2-5.4) 10^6/uL Hgb 11.3 L (12.0-16.0) g/dL Hct 35.7 L (37.0-47.0) % MCV 104.1 H (80-100) fL MCH 32.9 (27.0-34.0) pg MCHC 31.7 L (33.0-35.0) g/dL Plt Count 271 (150-450) 10^3/uL Neut % (Auto) 88.9 H (42.2-75.2) % Lymph % (Auto) 5.5 L (20.5-50.1) % [place] % (Auto) 5.5 (2-8) % Eos % (Auto) 0.0 L (1.0-3.0) % Baso % (Auto) 0.1 (0.0-1.0) % Add Manual Diff Sodium 140 (135-145) mmol/L Potassium 3.8 (3.6-5.0) mmol/L Chloride 94 L (101-111) mmol/L Carbon Dioxide 36.0 H (21.0-31.0) mmol/L Anion Gap 13.8 BUN 57 H (7-18) mg/dL Creatinine 1.3 (0.6-1.3) mg/dL Est Cr Clr Drug Dosing 26.65 mL/min Estimated GFR (MDRD) 39 Glucose 141 H (74-105) mg/dL Calcium 9.9 (8.4-10.2) mg/dl Med Orders - Current: Current Medications Acetaminophen (Tylenol) 650 mg PO Q4H PRN PRN Reason: Pain (Mild 1-3)/fever Last Admin: 06/16/17 08:01 Dose: 650 mg Albuterol/Ipratropium (Duoneb 3.0-0.5 Mg/3 Ml) 3 ml NEB Q6H [facility] Last Admin: 06/17/17 09:06 Dose: 3 ml Aspirin (Halfprin) 81 mg PO DAILY [facility] Last Admin: 06/17/17 09:07 Dose: 81 mg Budesonide (Pulmicort) 0.5 mg NEB BIDRT [facility] Last Admin: 06/17/17 09:06 Dose: 0.5 mg Carvedilol (Coreg) 12.5 mg PO BID [facility] Last Admin: 06/17/17 09:10 Dose: 12.5 mg Ciprofloxacin (Ciloxan 0.3% Ophth Soln) 0 ml EYEBOTH Q4HWA [facility] Last Admin: 06/17/17 09:12 Dose: 1 drop Clopidogrel Bisulfate (Plavix) 75 mg PO DAILY [facility] Last Admin: 06/17/17 09:07 Dose: 75 mg Famotidine (Pepcid) 20 mg PO DAILY [facility] Last Admin: 06/17/17 09:08 Dose: 20 mg Sodium Chloride (Normal Saline) 1,000 mls @ 75 mls/hr IV ASDIRECTED [facility] Last Admin: 06/17/17 01:14 Dose: 75 mls/hr Piperacillin Sod/Tazobactam (Sod 2.25 gm/ Sodium Chloride) 50 mls @ 100 mls/hr IV Q6H [facility] Last Admin: 06/17/17 08:33 Dose: Not Given Azithromycin 500 mg/ Sodium (Chloride) 250 mls @ 250 mls/hr IV Q24H [facility] Last Infusion: 06/16/17 16:30 Dose: Infused Lorazepam (Ativan) 0.25 mg PO TID PRN PRN Reason: Anxiety Methylprednisolone Sodium Succinate (Solu-Medrol) 40 mg IVPUSH Q8H [facility] Last Admin: 06/17/17 08:34 Dose: Not Given Potassium Chloride (Klor-Con 10) 40 meq PO BIDMEALS [facility] Last Admin: 06/17/17 09:07 Dose: 40 meq Sodium Chloride (Saline Flush) 10 ml FLUSH ASDIRECTED PRN PRN Reason: Keep Vein Open Discontinued Medications Albuterol/Ipratropium (Duoneb 3.0-0.5 Mg/3 Ml) 3 ml NEB ONETIME ONE Stop: 06/15/17 11:06 Last Admin: 06/15/17 11:16 Dose: 3 ml Albuterol/Ipratropium (Duoneb 3.0-0.5 Mg/3 Ml) Confirm Administered Dose 3 ml .ROUTE .STK-MED ONE Stop: 06/16/17 10:40 Bumetanide (Bumex) 1 mg PO DAILY [facility] Last Admin: 06/16/17 08:00 Dose: 1 mg Heparin Sodium (Porcine) (Heparin Sodium) 5,000 units SUBCUT Q8HR [facility] Last Admin: 06/17/17 08:38 Dose: Not Given Azithromycin 500 mg/ Sodium (Chloride) 250 mls @ 250 mls/hr IV Q24H [facility] Last Admin: 06/15/17 16:05 Dose: Not Given Piperacillin Sod/Tazobactam (Sod 2.25 gm/ Sodium Chloride) 50 mls @ 100 mls/hr IV Q6H [facility] Last Admin: 06/15/17 16:06 Dose: Not Given Methylprednisolone Sodium Succinate (Solu-Medrol) 40 mg IVPUSH Q8H [facility] Last Admin: 06/15/17 16:05 Dose: Not Given - Exam General: Mild Distress, Moderate Distress Lungs: Decreased Breath Sounds, Wheezing Cardiovascular: Regular Rate, Regular Rhythm GI/Abdominal Exam: Soft Psy/Mental Status: Other (confused ) - Problem List Review Problem List Initiated/Reviewed/Updated: Yes - My Orders Last 24 Hours: My Active Orders 06/17/17 10:31 ABG [BLOOD GAS ARTERIAL] [BG] Routine 06/17/17 10:32 CXR [Chest 1V Frontal] [CR] Routine 06/18/17 10:31 B-TYPE NATRIURETIC PEPTIDE,BNP [CHEM] Routine 06/18/17 10:32 BASIC METABOLIC PANEL,BMP [CHEM] Routine CBC W/O DIFF,HEMOGRAM [HEME] Routine - Plan Plan:: the patient is an 82-year-old lady who lives in a group home. She does have a history of dementia but normally she is walking with her walker and visiting with family. in the past few days the patient was noted to have cough, fever. There was concern about anxiety and insomnia. Started empirically on Tamiflu although testing was negative. 15 June the patient was noted to have minimal responsiveness and she was transferred to the emergency room. The patient is unable to give history. Family is at bedside. Also discussed with the emergency room physician #1 acute hypoxemic, hypercarbic respiratory failure Causing acute encephalopathy #2 acute encephalopathy secondary to hypercarbic respiratory failure #3 acute COPD exacerbation With hypercarbic, hypoxemic respiratory failure #4 history of systolic congestive heart failure with ischemic cardiomyopathy, For now the patient appears to have elevated BUN/creatinine. Due to her acute illness I think she is more dehydrated than in acute heart failure. Bumex discontinued because of suspected dehydration #5 acute renal failure due to dehydration due to encephalopathy #6 history of coronary artery disease Continue aspirin, Plavix #7 DVT prophylaxis with subcutaneous heparin #8 discussed CODE STATUS with patient's family on admission and today At this point it would like DO NOT RESUSCITATE, DO NOT INTUBATE, no feeding tube But they would like to attempt medical treatment, including BiPAP Plan: The patient has been weaned off from BiPAP. She still has some respiratory distress. Still confused I will go ahead and obtain arterial blood gas Discontinue intravenous Zosyn. Continue his azithromycin Send sample for Brain natruretic peptide Continue aggressive nebulization Obtain repeat chest x-ray Patient may need to be restarted on diuretics based on the BNP
--- NOTE | 2017-06-17 13:14 | CR ---
Clinical history: 82-year-old female abnormal cough. Interpretation: Cardiomegaly, generalized pulmonary venous congestion with cephalization of flow as n oted on 15 June exam this patient with sternotomy wires and cardiac pacemaker (leads intact). No a lveolar edema or dependent pleural effusion. Poor inspiratory effort with *asymmetric dense new retrocardiac consolidation left base (atelectasis and/or infiltrate). Clinical aspiration? No sign of lung mass hilar lymphadenopathy or other focal lobar consolidation. CONCLUSION: New left lower lobe consolidation (atelectasis/infiltrate). Cardiomegaly and chronic pulm onary venous congestion.
[2017-06-17 14:01] LABS: BASE EXCESS ARTERIAL 11 mmol/L ((-2)-(+3)); BICARBONATE,ARTERIAL 36.4 mmol/L (22-26); O2 DELIVERY DEVICE NASAL CANNULA; O2 SATURATION ARTERIAL 95 % (95-100); PCO2 ARTERIAL 53 mmHg (35-45); PO2 ARTERIAL 76 mmHg (70-100)
[2017-06-17 14:04] LABS: O2 FLOW RATE 3
[2017-06-17 14:05] LABS: ALLEN TEST LB
[2017-06-17] MEDS: Azithromycin 500 MG in Sodium Chloride 0.9% 250 ML IV SCH (15:27)
[2017-06-17] MEDS: Sodium Chloride 0.9% 10 ML Syringe FLUSH PRN (22:05)
[2017-06-18] MEDS: Albuterol/Ipratropium 3.0-0.5 MG/3 ML Neb Soln NEB SCH ×4 (00:51→18:25)
[2017-06-18] MEDS: methylPREDNISolone Sodium Succinate 40 MG/1 ML SDV IVPUSH SCH ×3 (06:12→21:33)
[2017-06-18] MEDS: Sodium Chloride 0.9% 10 ML Syringe FLUSH PRN ×3 (06:13→21:33)
[2017-06-18] MEDS: Budesonide 0.5 MG/2 ML Neb Susp NEB SCH ×2 (07:33→18:25)
[2017-06-18 07:53] LABS: ANION GAP 14.5
[2017-06-18] MEDS: Carvedilol 6.25 MG Tab PO SCH ×2 (09:23→18:10)
[2017-06-18] MEDS: Famotidine 20 MG Tab PO SCH (09:23)
[2017-06-18] MEDS: Clopidogrel 75 MG Tab PO SCH (09:23)
[2017-06-18] MEDS: Potassium Chloride 10 MEQ Tab.ER PO SCH ×2 (09:24→18:11)
[2017-06-18] MEDS: Aspirin 81 MG Tab.EC PO SCH (09:24)
[2017-06-18] MEDS: Ciprofloxacin 0.3% Ophth Soln 2.5 ML Bottle EYEBOTH SCH ×4 (09:25→18:12)
--- NOTE | 2017-06-18 11:12 | PN ---
DATE: 06/18/2017 The patient is an 82-year-old lady admitted with respiratory failure secondary to COPD and also acute renal failure and dehydration. She was on BiPAP yesterday but her ABG came back with some improvement so she is now on per nasal cannula. The patient this morning is still drowsy and sleepy but responds to verbal commands appropriately. The patient denies any chest pain or any abdominal pain. LABORATORY DATA: Lab workup this morning, WBC is 21.5, hemoglobin is 12, hematocrit is 36. Sodium was 137, potassium 4.5, chloride of 95, carbon dioxide of 32, BUN is 50. BNP is 1800. OBJECTIVE: Vital Signs: Blood pressure is 144/67, pulse 72, respirations of 20. Heart: Regular rate and rhythm. Lungs: Diminished breath sounds bilaterally but no significant wheezing or crackles. Abdomen: Soft. Bowel sounds positive. Extremities: Negative for any significant pedal edema. No calf tenderness. MEDICATIONS: Reviewed. I am going to continue with her azithromycin IV and continue with Solu-Medrol. Her elevated WBC could just be reactive from Solu- Medrol. We will continue with the rest of her management. The patient's overall status still very guarded. I did discuss this with the patient's son Rehan Desai about overall prognosis and he is aware. [facility] /[id number]
[2017-06-18] MEDS: Azithromycin 500 MG in Sodium Chloride 0.9% 250 ML IV SCH (14:24)
[2017-06-18] MEDS ORDERED: Promethazine 25 MG/ML SDV IM PRN (16:34)
[2017-06-18] MEDS ORDERED: Nystatin Topical Powder 30 GM Bottle TOP ONE (19:15)
[2017-06-18] MEDS: Nystatin Topical Powder 30 GM Bottle TOP SCH (20:59)
[2017-06-19] MEDS: Albuterol/Ipratropium 3.0-0.5 MG/3 ML Neb Soln NEB SCH ×4 (01:26→18:45)
[2017-06-19] MEDS: Sodium Chloride 0.9% 10 ML Syringe FLUSH PRN ×6 (06:14→21:11)
[2017-06-19] MEDS: methylPREDNISolone Sodium Succinate 40 MG/1 ML SDV IVPUSH SCH ×3 (06:14→21:10)
[2017-06-19] MEDS: Budesonide 0.5 MG/2 ML Neb Susp NEB SCH ×2 (06:45→18:45)
[2017-06-19 06:55] LABS: ANION GAP 14.6
[2017-06-19] MEDS: Ciprofloxacin 0.3% Ophth Soln 2.5 ML Bottle EYEBOTH SCH ×4 (08:10→21:10)
[2017-06-19] MEDS: Aspirin 81 MG Tab.EC PO SCH (08:27)
[2017-06-19] MEDS: Potassium Chloride 10 MEQ Tab.ER PO SCH ×2 (08:27→14:30)
[2017-06-19] MEDS: Carvedilol 6.25 MG Tab PO SCH ×2 (08:27→18:03)
[2017-06-19] MEDS: Clopidogrel 75 MG Tab PO SCH (08:28)
[2017-06-19] MEDS: Famotidine 20 MG Tab PO SCH (08:28)
[2017-06-19] MEDS: Nystatin Topical Powder 30 GM Bottle TOP SCH ×2 (08:31→21:10)
[2017-06-19] MEDS ORDERED: Furosemide 40 MG/4 ML VIAL IVPUSH ONE (10:02)
[2017-06-19] MEDS ORDERED: Bumetanide 1 MG/4 ML MDV IVPUSH ONE (10:54)
--- NOTE | 2017-06-19 12:16 | PN ---
DATE: 06/19/2017 SUBJECTIVE: The patient this morning was sleepy, but opens eyes to commands, and still has the respiratory/shortness of breath. Otherwise, the patient looks comfortable and denies any pain. LABORATORY DATA: Lab workup this morning, WBC is 24.5, still increasing; hemoglobin is 12.4; hematocrit 38.4; platelet is 266. Chem-6; sodium is 137, potassium is 5.6, BUN is 46, and glucose is 123. OBJECTIVE: Vital Signs: Blood pressure is 144/82, pulse of 70, respiration of 17. Heart: Regular rate and rhythm. Normal S1 and S2. No gallops. No rubs. Lungs: Diminished breath sounds bilaterally with coarse breath sounds in both lung schumacher with faint crackles. Abdomen: Soft and nontender. Extremities: Negative for any significant pedal edema. No calf tenderness. MEDICATIONS: Reviewed. PLAN: I am going to add again Zosyn on her IV antibiotics as her WBC is still increasing. I am also going to give her Lasix 40 mg IV today because of some weight gain, and we will continue the rest of her management. We will also check for CBC, and basic metabolic panel in a.m. The patient's prognosis is still very guarded. [facility] /[id number]
[2017-06-19] MEDS: Piperacillin/Tazobactam 2.25 GM in Sodium Chloride 0.9% 50 ML IV SCH ×2 (12:39→18:07)
[2017-06-19] MEDS: Azithromycin 500 MG in Sodium Chloride 0.9% 250 ML IV SCH (14:19)
[2017-06-19] MEDS: Mineral Oil/Petrolatum/Phenylephrine/Shark Liver Oil Oint 57 GM Tube RECTAL SCH ×3 (14:19→21:10)
[2017-06-19] MEDS: Acetaminophen 325 MG Tab PO PRN (16:04)
[2017-06-19] MEDS: LORazepam 0.5 MG Tab PO PRN (16:04)
[2017-06-19] MEDS ORDERED: Nystatin Crm 15 GM Tube TOP PRN (19:36)
[2017-06-20] MEDS: Piperacillin/Tazobactam 2.25 GM in Sodium Chloride 0.9% 50 ML IV SCH ×4 (00:05→18:19)
[2017-06-20] MEDS: Albuterol/Ipratropium 3.0-0.5 MG/3 ML Neb Soln NEB SCH ×4 (00:43→18:37)
[2017-06-20] MEDS: methylPREDNISolone Sodium Succinate 40 MG/1 ML SDV IVPUSH SCH ×3 (06:24→21:15)
[2017-06-20] MEDS: Sodium Chloride 0.9% 10 ML Syringe FLUSH PRN ×3 (06:24→12:50)
[2017-06-20 06:34] LABS: ANION GAP 12.5
[2017-06-20] MEDS: Budesonide 0.5 MG/2 ML Neb Susp NEB SCH ×2 (07:35→18:37)
[2017-06-20] MEDS: Famotidine 20 MG Tab PO SCH (08:26)
[2017-06-20] MEDS: Aspirin 81 MG Tab.EC PO SCH (08:26)
[2017-06-20] MEDS: Clopidogrel 75 MG Tab PO SCH (08:26)
[2017-06-20] MEDS: Carvedilol 6.25 MG Tab PO SCH ×2 (08:26→18:18)
[2017-06-20] MEDS: Nystatin Topical Powder 30 GM Bottle TOP SCH ×2 (08:27→21:15)
[2017-06-20] MEDS: Mineral Oil/Petrolatum/Phenylephrine/Shark Liver Oil Oint 57 GM Tube RECTAL SCH ×2 (08:27→21:16)
[2017-06-20] MEDS: Ciprofloxacin 0.3% Ophth Soln 2.5 ML Bottle EYEBOTH SCH ×4 (08:27→21:16)
[2017-06-20] MEDS: Potassium Chloride 10 MEQ Tab.ER PO SCH (08:28)
[2017-06-20] MEDS: cefTRIAXone 2 GM Vial IVPUSH SCH (09:53)
[2017-06-20] MEDS: metroNIDAZOLE 250 MG Tab PO SCH ×3 (09:54→21:15)
--- NOTE | 2017-06-20 12:10 | PCM.PN ---
- General Info Date of Service: 06/20/17 Admission Dx/Problem (Free Text): Admission Diagnosis/Problem Admission Diagnosis/Problem Respiratory failure Subjective Update: Pt still has shortness of breath on supplemental oxygen, feels very weak, hear of hearing, had no new complain, had Mulyiple BM yesterday, only once today Functional Status: Reports: Pain Controlled, Tolerating Diet, Urinating - Review of Systems General: Reports: Weakness, Fatigue, Malaise, Appetite (acceptable). Denies: Chills HEENT: Reports: Other (heard of hearing). Denies: Ear Pain, Eye Pain, Headaches , Sinus Congestion, Sore Throat, Visual Changes Pulmonary: Reports: Shortness of Breath, Cough, Sputum. Denies: Wheezing Cardiovascular: Denies: Chest Pain, Palpitations, Lightheadedness Gastrointestinal: Reports: Diarrhea. Denies: Abdominal Pain, Difficulty Swallowing, Nausea, Vomiting Genitourinary: Denies: Dysuria, Frequency, Burning, Urgency Musculoskeletal: Reports: Back Pain. Denies: Neck Pain, Arm Pain, Joint Pain Skin: Denies: Cyanosis, Jaundice, Dryness, Bruising, Pruritis, Rash Neurological: Reports: Gait Disturbance. Denies: Confusion, Tingling, Trouble Speaking Psychiatric: Denies: Confusion, Anxiety - Patient Data Vitals - Most Recent: Last Vital Signs Temp 36.8 C 06/20/17 07:00 Pulse 70 06/20/17 08:26 Resp 20 06/20/17 07:00 BP 132/72 06/20/17 08:26 Pulse Ox 96 06/20/17 11:59 Weight - Most Recent: 73.17 kg I&O - Last 24 Hours: Intake & Output 06/19/17 06/20/17 06/20/17 22:59 06:59 14:59 Intake Total 740 565 Output Total 1000 1300 Balance -260 -1300 565 Lab Results Last 24 Hours: Laboratory Results - last 24 hr 06/20/17 06/20/17 Range/Units 06:00 06:00 WBC 27.3 H* (5.0-10.0) 10^3/uL RBC 3.71 L (4.2-5.4) 10^6/uL Hgb 12.2 (12.0-16.0) g/dL Hct 38.0 (37.0-47.0) % MCV 102.4 H (80-100) fL MCH 32.9 (27.0-34.0) pg MCHC 32.1 L (33.0-35.0) g/dL Plt Count 256 (150-450) 10^3/uL Neut % (Auto) 90.7 H (42.2-75.2) % Lymph % (Auto) 4.4 L (20.5-50.1) % [place] % (Auto) 4.9 (2-8) % Eos % (Auto) 0.0 L (1.0-3.0) % Baso % (Auto) 0.0 (0.0-1.0) % Sodium 135 (135-145) mmol/L Potassium 5.5 H (3.6-5.0) mmol/L Chloride 95 L (101-111) mmol/L Carbon Dioxide 33.0 H (21.0-31.0) mmol/L Anion Gap 12.5 BUN 48 H (7-18) mg/dL Creatinine 1.3 (0.6-1.3) mg/dL Est Cr Clr Drug Dosing 26.65 mL/min Estimated GFR (MDRD) 39 Glucose 118 H (74-105) mg/dL Calcium 10.0 (8.4-10.2) mg/dl Med Orders - Current: Current Medications Acetaminophen (Tylenol) 650 mg PO Q4H PRN PRN Reason: Pain (Mild 1-3)/fever Last Admin: 06/19/17 16:04 Dose: 650 mg Albuterol/Ipratropium (Duoneb 3.0-0.5 Mg/3 Ml) 3 ml NEB Q6HRRT [facility] Last Admin: 06/20/17 12:03 Dose: 3 ml Aspirin (Halfprin) 81 mg PO DAILY [facility] Last Admin: 06/20/17 08:26 Dose: 81 mg Budesonide (Pulmicort) 0.5 mg NEB BIDRT [facility] Last Admin: 06/20/17 07:35 Dose: 0.5 mg Carvedilol (Coreg) 12.5 mg PO BIDMEALS [facility] Last Admin: 06/20/17 08:26 Dose: 12.5 mg Ceftriaxone Sodium (Rocephin) 2 gm IVPUSH Q24H [facility] Last Admin: 06/20/17 09:53 Dose: 2 gm Ciprofloxacin (Ciloxan 0.3% Ophth Soln) 0 ml EYEBOTH Q4HWA [facility] Last Admin: 06/20/17 08:27 Dose: 1 drop Clopidogrel Bisulfate (Plavix) 75 mg PO DAILY [facility] Last Admin: 06/20/17 08:26 Dose: 75 mg Famotidine (Pepcid) 20 mg PO DAILY [facility] Last Admin: 06/20/17 08:26 Dose: 20 mg Azithromycin 500 mg/ Sodium (Chloride) 250 mls @ 250 mls/hr IV Q24H [facility] Last Admin: 06/19/17 14:19 Dose: 125 mls/hr Piperacillin Sod/Tazobactam (Sod 2.25 gm/ Sodium Chloride) 50 mls @ 100 mls/hr IV Q6HR [facility] Last Admin: 06/20/17 06:24 Dose: 100 mls/hr Lorazepam (Ativan) 0.25 mg PO TID PRN PRN Reason: Anxiety Last Admin: 06/19/17 16:04 Dose: 0.25 mg Methylprednisolone Sodium Succinate (Solu-Medrol) 40 mg IVPUSH Q8H [facility] Last Admin: 06/20/17 06:24 Dose: 40 mg Metronidazole (Metronidazole) 250 mg PO TID@0600,1400,2200 [facility] Last Admin: 06/20/17 09:54 Dose: 250 mg Nystatin (Nystop) 0 gm TOP BID [facility] Last Admin: 06/20/17 08:27 Dose: 1 applic Nystatin (Nystatin Crm) 0 gm TOP QID PRN PRN Reason: Rash Phenyleph/Shark Oil/Min Oil/Petrol (Preparation H Oint) 0 gm RECTAL BID [facility] Last Admin: 06/20/17 08:27 Dose: 1 applic Promethazine HCl (Phenergan) 25 mg IM Q6H PRN PRN Reason: Nausea/Vomiting Sodium Chloride (Saline Flush) 10 ml FLUSH ASDIRECTED PRN PRN Reason: Keep Vein Open Last Admin: 06/20/17 09:53 Dose: 10 ml Discontinued Medications Albuterol/Ipratropium (Duoneb 3.0-0.5 Mg/3 Ml) 3 ml NEB ONETIME ONE Stop: 06/15/17 11:06 Last Admin: 06/15/17 11:16 Dose: 3 ml Albuterol/Ipratropium (Duoneb 3.0-0.5 Mg/3 Ml) 3 ml NEB Q6H [facility] Last Admin: 06/17/17 12:49 Dose: Not Given Albuterol/Ipratropium (Duoneb 3.0-0.5 Mg/3 Ml) Confirm Administered Dose 3 ml .ROUTE .STK-MED ONE Stop: 06/16/17 10:40 Last Admin: 06/17/17 12:44 Dose: 3 ml Bumetanide (Bumex) 1 mg PO DAILY [facility] Last Admin: 06/16/17 08:00 Dose: 1 mg Bumetanide (Bumex) 2 mg IVPUSH ONETIME ONE Stop: 06/19/17 10:55 Last Admin: 06/19/17 12:08 Dose: 2 mg Carvedilol (Coreg) 12.5 mg PO BID [facility] Last Admin: 06/17/17 09:10 Dose: 12.5 mg Furosemide (Lasix) 40 mg IVPUSH NOW ONE Stop: 06/19/17 10:03 Last Admin: 06/19/17 11:54 Dose: Not Given Heparin Sodium (Porcine) (Heparin Sodium) 5,000 units SUBCUT Q8HR [facility] Last Admin: 06/17/17 08:38 Dose: Not Given Sodium Chloride (Normal Saline) 1,000 mls @ 75 mls/hr IV ASDIRECTED [facility] Last Admin: 06/17/17 01:14 Dose: 75 mls/hr Azithromycin 500 mg/ Sodium (Chloride) 250 mls @ 250 mls/hr IV Q24H [facility] Last Admin: 06/15/17 16:05 Dose: Not Given Piperacillin Sod/Tazobactam (Sod 2.25 gm/ Sodium Chloride) 50 mls @ 100 mls/hr IV Q6H [facility] Last Admin: 06/15/17 16:06 Dose: Not Given Piperacillin Sod/Tazobactam (Sod 2.25 gm/ Sodium Chloride) 50 mls @ 100 mls/hr IV Q6H [facility] Last Admin: 06/17/17 10:43 Dose: Not Given Methylprednisolone Sodium Succinate (Solu-Medrol) 40 mg IVPUSH Q8H [facility] Last Admin: 06/15/17 16:05 Dose: Not Given Nystatin (Nystop) 0 gm TOP ONETIME ONE Stop: 06/18/17 19:16 Last Admin: 06/18/17 19:22 Dose: 1 applic Potassium Chloride (Klor-Con 10) 40 meq PO BIDMEALS [facility] Last Admin: 06/19/17 08:27 Dose: 40 meq Potassium Chloride (Klor-Con 10) 20 meq PO BIDMEALS [facility] Last Admin: 06/20/17 08:28 Dose: Not Given - Exam Quality Assessment: Supplemental Oxygen, DVT Prophylaxis General: Alert, Oriented, Cooperative, No Acute Distress HEENT: Pupils Equal, EOMI, Mucous Membr. Moist/[place] Neck: Supple, No JVD, No Thyromegaly Lungs: Clear to Auscultation, Normal Respiratory Effort, Crackles, Rhonchi Cardiovascular: Murmurs GI/Abdominal Exam: Normal Bowel Sounds, Soft, Non-Tender, No Distention. No: Guarding, Rigid, Rebound (Female) Exam: Deferred Back Exam: Normal Inspection, Full Range of Motion Extremities: Normal Inspection, No Pedal Edema Skin: Warm, Dry, Intact Neurological: No New Focal Deficit Psy/Mental Status: Alert, Normal Affect, Normal Mood - Problem List Review Problem List Initiated/Reviewed/Updated: Yes - My Orders Last 24 Hours: My Active Orders 06/20/17 09:00 cefTRIAXone [Rocephin] 2 gm IVPUSH Q24H 06/20/17 09:30 metroNIDAZOLE 250 mg PO TID@0600,1400,2200 - Plan Plan:: This the patient is an 82-year-old lady with a history of ischemic cardiomyopathy, COPD.She lives in a long term She does have a history of dementia but normally she is walking with her walker and visiting with family. In the past few days the patient was noted to have cough, fever. There was concern about anxiety and insomnia. Started empirically on Tamiflu although testing was negative. on 15 June the patient was noted to have minimal responsiveness and she was transferred to the emergency room. #1 acute hypoxemic, hypercarbic respiratory failure Causing acute encephalopathy #2 acute encephalopathy secondary to hypercarbic respiratory failure #3 acute COPD exacerbation -With hypercarbic, hypoxemic respiratory failure,treat with Pulmicort, scheduled DuoNeb -Systemic steroids with Solu-Medrol -continue azithro, zosyn and ceftriaxone empirically #4 history of systolic congestive heart failure with ischemic cardiomyopathy, - Her BUN/creatinin was elevated , this was Due to her acute illness and also more dehydrated has received IVF and Bumex discontinued because of suspected dehydration #5 acute renal failure due to dehydration due to encephalopathy -Continue holding Lisinopril #6 history of coronary artery disease Continue aspirin, Plavix #7 DVT prophylaxis with subcutaneous heparin #8 Diarrhea: The pt had multiple episode lose stool yesterday, c. diff still not available -Will treat emperically, start Metronidazole at 250 mg BID #9 CODE STATUS : DO NOT RESUSCITATE, DO NOT INTUBATE
[2017-06-20] MEDS: Betamethasone Dipropionate/Clotrimazole 0.05-1% Crm 15 GM Tube TOP PRN (14:33)
[2017-06-20] MEDS: Azithromycin 500 MG in Sodium Chloride 0.9% 250 ML IV SCH (15:47)
[2017-06-20] MEDS: Acetaminophen 325 MG Tab PO PRN (21:14)
[2017-06-20] MEDS: LORazepam 0.5 MG Tab PO PRN (21:29)
[2017-06-21] MEDS: Piperacillin/Tazobactam 2.25 GM in Sodium Chloride 0.9% 50 ML IV SCH ×6 (03:12→20:56)
[2017-06-21] MEDS: Albuterol/Ipratropium 3.0-0.5 MG/3 ML Neb Soln NEB SCH ×4 (03:13→17:38)
[2017-06-21] MEDS: metroNIDAZOLE 250 MG Tab PO SCH ×3 (06:06→22:06)
[2017-06-21] MEDS: methylPREDNISolone Sodium Succinate 40 MG/1 ML SDV IVPUSH SCH ×3 (06:06→22:06)
[2017-06-21 06:53] LABS: ANION GAP 13.1
[2017-06-21] MEDS: Budesonide 0.5 MG/2 ML Neb Susp NEB SCH ×2 (07:11→17:40)
[2017-06-21] MEDS: Ciprofloxacin 0.3% Ophth Soln 2.5 ML Bottle EYEBOTH SCH ×4 (09:00→20:07)
[2017-06-21] MEDS: Carvedilol 6.25 MG Tab PO SCH ×2 (09:00→17:37)
[2017-06-21] MEDS: Famotidine 20 MG Tab PO SCH (09:44)
--- NOTE | 2017-06-21 10:29 | PCM.PN ---
- General Info Date of Service: 06/21/17 Admission Dx/Problem (Free Text): Admission Diagnosis/Problem Admission Diagnosis/Problem Respiratory failure Subjective Update: Pt still has shortness of breath on supplemental oxygen, feels very weak, Very hear of hearing, had no new complain, eat her AM meals Functional Status: Reports: Pain Controlled, Tolerating Diet, Ambulating (bed bound, need PT/OT), Urinating - Review of Systems General: Reports: Weakness, Fatigue, Appetite (OK). Denies: Fever, Chills HEENT: Denies: Dysphasia, Sinus Congestion, Sore Throat, Visual Changes Pulmonary: Reports: Shortness of Breath, Cough. Denies: Sputum, Wheezing Cardiovascular: Denies: Chest Pain, Palpitations, Lightheadedness Gastrointestinal: Denies: Abdominal Pain, Diarrhea, Difficulty Swallowing, Nausea, Vomiting Genitourinary: Denies: Dysuria, Frequency, Burning, Flank Pain Musculoskeletal: Reports: Back Pain, Other (extreme weakness) Skin: Denies: Cyanosis, Jaundice, Diaphoresis, Bruising, Pruritis, Rash Neurological: Denies: Confusion, Numbness, Tremors Psychiatric: Denies: Confusion, Anxiety, Agitation - Patient Data Vitals - Most Recent: Last Vital Signs Temp 36.1 C 06/21/17 07:30 Pulse 70 06/21/17 07:30 Resp 18 06/21/17 07:30 BP 135/80 06/21/17 07:30 Pulse Ox 96 06/21/17 07:30 Weight - Most Recent: 73.17 kg I&O - Last 24 Hours: Intake & Output 06/20/17 06/21/17 06/21/17 22:59 06:59 14:59 Intake Total 415 600 Output Total 600 900 Balance -185 -300 Lab Results Last 24 Hours: Laboratory Results - last 24 hr 06/21/17 06/21/17 Range/Units 06:00 06:00 WBC 26.6 H* (5.0-10.0) 10^3/uL RBC 3.70 L (4.2-5.4) 10^6/uL Hgb 12.5 (12.0-16.0) g/dL Hct 37.0 (37.0-47.0) % MCV 100.0 (80-100) fL MCH 33.8 (27.0-34.0) pg MCHC 33.8 (33.0-35.0) g/dL Plt Count 232 (150-450) 10^3/uL Neut % (Auto) 91.7 H (42.2-75.2) % Lymph % (Auto) 3.5 L (20.5-50.1) % [place] % (Auto) 4.8 (2-8) % Eos % (Auto) 0.0 L (1.0-3.0) % Baso % (Auto) 0.0 (0.0-1.0) % Sodium 133 L (135-145) mmol/L Potassium 5.1 H (3.6-5.0) mmol/L Chloride 93 L (101-111) mmol/L Carbon Dioxide 32.0 H (21.0-31.0) mmol/L Anion Gap 13.1 BUN 47 H (7-18) mg/dL Creatinine 1.3 (0.6-1.3) mg/dL Est Cr Clr Drug Dosing 26.65 mL/min Estimated GFR (MDRD) 39 Glucose 104 (74-105) mg/dL Calcium 9.7 (8.4-10.2) mg/dl Med Orders - Current: Current Medications Acetaminophen (Tylenol) 650 mg PO Q4H PRN PRN Reason: Pain (Mild 1-3)/fever Last Admin: 06/20/17 21:14 Dose: 650 mg Albuterol/Ipratropium (Duoneb 3.0-0.5 Mg/3 Ml) 3 ml NEB Q6HRRT [facility] Last Admin: 06/21/17 07:11 Dose: 3 ml Aspirin (Halfprin) 81 mg PO DAILY [facility] Last Admin: 06/20/17 08:26 Dose: 81 mg Betamethasone/Clotrimazole (Lotrisone) 0 gm TOP BID PRN PRN Reason: Wound Care Last Admin: 06/20/17 14:33 Dose: 1 applic Budesonide (Pulmicort) 0.5 mg NEB BIDRT [facility] Last Admin: 06/21/17 07:11 Dose: 0.5 mg Carvedilol (Coreg) 12.5 mg PO BIDMEALS [facility] Last Admin: 06/20/17 18:18 Dose: 12.5 mg Ceftriaxone Sodium (Rocephin) 2 gm IVPUSH Q24H [facility] Last Admin: 06/20/17 09:53 Dose: 2 gm Ciprofloxacin (Ciloxan 0.3% Ophth Soln) 0 ml EYEBOTH Q4HWA [facility] Last Admin: 06/20/17 21:16 Dose: 1 drop Clopidogrel Bisulfate (Plavix) 75 mg PO DAILY [facility] Last Admin: 06/20/17 08:26 Dose: 75 mg Famotidine (Pepcid) 20 mg PO DAILY [facility] Last Admin: 06/20/17 08:26 Dose: 20 mg Azithromycin 500 mg/ Sodium (Chloride) 250 mls @ 250 mls/hr IV Q24H [facility] Last Infusion: 06/20/17 18:33 Dose: Infused Piperacillin Sod/Tazobactam (Sod 2.25 gm/ Sodium Chloride) 50 mls @ 100 mls/hr IV Q6H [facility] Lorazepam (Ativan) 0.25 mg PO TID PRN PRN Reason: Anxiety Last Admin: 06/20/17 21:29 Dose: 0.25 mg Methylprednisolone Sodium Succinate (Solu-Medrol) 40 mg IVPUSH Q8H [facility] Last Admin: 06/21/17 06:06 Dose: 40 mg Metronidazole (Metronidazole) 250 mg PO TID@0600,1400,2200 [facility] Last Admin: 06/21/17 06:06 Dose: 250 mg Nystatin (Nystop) 0 gm TOP BID [facility] Last Admin: 06/20/17 21:15 Dose: 1 applic Nystatin (Nystatin Crm) 0 gm TOP QID PRN PRN Reason: Rash Phenyleph/Shark Oil/Min Oil/Petrol (Preparation H Oint) 0 gm RECTAL BID [facility] Last Admin: 06/20/17 21:16 Dose: 1 applic Promethazine HCl (Phenergan) 25 mg IM Q6H PRN PRN Reason: Nausea/Vomiting Sodium Chloride (Saline Flush) 10 ml FLUSH ASDIRECTED PRN PRN Reason: Keep Vein Open Last Admin: 06/20/17 12:50 Dose: 10 ml Discontinued Medications Albuterol/Ipratropium (Duoneb 3.0-0.5 Mg/3 Ml) 3 ml NEB ONETIME ONE Stop: 06/15/17 11:06 Last Admin: 06/15/17 11:16 Dose: 3 ml Albuterol/Ipratropium (Duoneb 3.0-0.5 Mg/3 Ml) 3 ml NEB Q6H [facility] Last Admin: 06/17/17 12:49 Dose: Not Given Albuterol/Ipratropium (Duoneb 3.0-0.5 Mg/3 Ml) Confirm Administered Dose 3 ml .ROUTE .STK-MED ONE Stop: 06/16/17 10:40 Last Admin: 06/17/17 12:44 Dose: 3 ml Bumetanide (Bumex) 1 mg PO DAILY [facility] Last Admin: 06/16/17 08:00 Dose: 1 mg Bumetanide (Bumex) 2 mg IVPUSH ONETIME ONE Stop: 06/19/17 10:55 Last Admin: 06/19/17 12:08 Dose: 2 mg Carvedilol (Coreg) 12.5 mg PO BID [facility] Last Admin: 06/17/17 09:10 Dose: 12.5 mg Furosemide (Lasix) 40 mg IVPUSH NOW ONE Stop: 06/19/17 10:03 Last Admin: 06/19/17 11:54 Dose: Not Given Heparin Sodium (Porcine) (Heparin Sodium) 5,000 units SUBCUT Q8HR [facility] Last Admin: 06/17/17 08:38 Dose: Not Given Sodium Chloride (Normal Saline) 1,000 mls @ 75 mls/hr IV ASDIRECTED [facility] Last Admin: 06/17/17 01:14 Dose: 75 mls/hr Azithromycin 500 mg/ Sodium (Chloride) 250 mls @ 250 mls/hr IV Q24H [facility] Last Admin: 06/15/17 16:05 Dose: Not Given Piperacillin Sod/Tazobactam (Sod 2.25 gm/ Sodium Chloride) 50 mls @ 100 mls/hr IV Q6H [facility] Last Admin: 06/15/17 16:06 Dose: Not Given Piperacillin Sod/Tazobactam (Sod 2.25 gm/ Sodium Chloride) 50 mls @ 100 mls/hr IV Q6H [facility] Last Admin: 06/17/17 10:43 Dose: Not Given Piperacillin Sod/Tazobactam (Sod 2.25 gm/ Sodium Chloride) 50 mls @ 100 mls/hr IV Q6HR [facility] Last Admin: 06/21/17 07:07 Dose: Not Given Methylprednisolone Sodium Succinate (Solu-Medrol) 40 mg IVPUSH Q8H [facility] Last Admin: 06/15/17 16:05 Dose: Not Given Nystatin (Nystop) 0 gm TOP ONETIME ONE Stop: 06/18/17 19:16 Last Admin: 06/18/17 19:22 Dose: 1 applic Potassium Chloride (Klor-Con 10) 40 meq PO BIDMEALS [facility] Last Admin: 06/19/17 08:27 Dose: 40 meq Potassium Chloride (Klor-Con 10) 20 meq PO BIDMEALS [facility] Last Admin: 06/20/17 08:28 Dose: Not Given - Exam Quality Assessment: Supplemental Oxygen, DVT Prophylaxis General: Alert, Oriented, Cooperative, No Acute Distress HEENT: Pupils Equal, Mucous Membr. Moist/[place] Neck: Supple, No JVD, No Thyromegaly Lungs: Clear to Auscultation, Normal Respiratory Effort. No: Crackles Cardiovascular: Regular Rate, Regular Rhythm, Murmurs GI/Abdominal Exam: Normal Bowel Sounds, Soft, Non-Tender. No: Guarding, Rebound , Tender (Female) Exam: Deferred Back Exam: Normal Inspection Extremities: Normal Inspection, No Pedal Edema Skin: Warm, Dry, Intact Neurological: No New Focal Deficit, Normal Speech, Other (heard of hearing) Psy/Mental Status: Alert, Normal Affect, Normal Mood - Problem List Review Problem List Initiated/Reviewed/Updated: Yes - My Orders Last 24 Hours: My Active Orders 06/20/17 09:30 metroNIDAZOLE 250 mg PO TID@0600,1400,2200 06/20/17 13:28 Betamethasone/Clotrimazole [Lotrisone] See Dose Instructions TOP BID PRN - Plan Plan:: This the patient is an 82-year-old lady with a history of ischemic cardiomyopathy, COPD.[facility] She does have a history of dementia but normally she is walking with her walker and visiting with family. In the past few days the patient was noted to have cough, fever. There was concern about anxiety and insomnia. Started empirically on Tamiflu although testing was negative. on 15 June the patient was noted to have minimal responsiveness and she was transferred to the emergency room. #1 acute hypoxemic, hypercarbic respiratory failure Caused acute encephalopathy, initially was on BiPAP, Now doing well and encephalopathy has resolved #2 acute encephalopathy secondary to hypercarbic respiratory failure, off BipAP and it resolved #3 acute COPD exacerbation -With hypercarbic, hypoxemic respiratory failure,treat with Pulmicort, scheduled DuoNeb -Systemic steroids with Solu-Medrol 40 mg IV Q8hrs -continue IV azithro, zosyn and ceftriaxone empirically #4 history of systolic congestive heart failure with ischemic cardiomyopathy, - Her BUN/creatinin was elevated , this was Due to her acute illness and also more dehydrated has received IVF and Bumex discontinued because of suspected dehydration #5 acute renal failure due to dehydration due to encephalopathy -Continue holding Lisinopril #6 history of coronary artery disease Continue aspirin, Plavix #7 DVT prophylaxis with subcutaneous heparin #8 Diarrhea: The pt had multiple episode lose stool yesterday, c. diff still not available -Will treat emperically, continue Metronidazole at 250 mg BID #9 Extreme weakness: PT/OT saw her last week and likely need continuous churn buttermaker care and transfer to swing bed #10 CODE STATUS : DO NOT RESUSCITATE, DO NOT INTUBATE
[2017-06-21] MEDS: Nystatin Topical Powder 30 GM Bottle TOP SCH ×2 (10:42→20:55)
[2017-06-21] MEDS: Aspirin 81 MG Tab.EC PO SCH (10:43)
[2017-06-21] MEDS: Mineral Oil/Petrolatum/Phenylephrine/Shark Liver Oil Oint 57 GM Tube RECTAL SCH ×2 (10:43→20:56)
[2017-06-21] MEDS: Clopidogrel 75 MG Tab PO SCH (10:43)
[2017-06-21] MEDS: cefTRIAXone 2 GM Vial IVPUSH SCH (10:46)
[2017-06-21] MEDS: Sodium Chloride 0.9% 10 ML Syringe FLUSH PRN ×2 (14:17→15:50)
[2017-06-21] MEDS: Azithromycin 500 MG in Sodium Chloride 0.9% 250 ML IV SCH (14:19)
[2017-06-21] MEDS: LORazepam 0.5 MG Tab PO PRN ×2 (15:25→23:02)
[2017-06-21] MEDS: Acetaminophen 325 MG Tab PO PRN ×2 (15:27→23:03)
[2017-06-21] MEDS: Betamethasone Dipropionate/Clotrimazole 0.05-1% Crm 15 GM Tube TOP PRN (15:36)
[2017-06-22] MEDS: Albuterol/Ipratropium 3.0-0.5 MG/3 ML Neb Soln NEB SCH ×4 (01:08→18:06)
[2017-06-22] MEDS: Piperacillin/Tazobactam 2.25 GM in Sodium Chloride 0.9% 50 ML IV SCH ×2 (03:07→09:37)
[2017-06-22] MEDS: metroNIDAZOLE 250 MG Tab PO SCH ×3 (06:12→21:45)
[2017-06-22] MEDS: methylPREDNISolone Sodium Succinate 40 MG/1 ML SDV IVPUSH SCH ×2 (06:12→18:05)
[2017-06-22] MEDS: Budesonide 0.5 MG/2 ML Neb Susp NEB SCH ×2 (07:45→18:06)
[2017-06-22] MEDS: Ciprofloxacin 0.3% Ophth Soln 2.5 ML Bottle EYEBOTH SCH ×4 (09:15→19:43)
[2017-06-22] MEDS: Clopidogrel 75 MG Tab PO SCH (09:16)
[2017-06-22] MEDS: Famotidine 20 MG Tab PO SCH (09:16)
[2017-06-22] MEDS: Carvedilol 6.25 MG Tab PO SCH ×2 (09:16→18:06)
[2017-06-22] MEDS: cefTRIAXone 2 GM Vial IVPUSH SCH (09:16)
[2017-06-22] MEDS: Aspirin 81 MG Tab.EC PO SCH (09:16)
[2017-06-22] MEDS: Nystatin Topical Powder 30 GM Bottle TOP SCH ×2 (09:17→21:40)
[2017-06-22] MEDS: Mineral Oil/Petrolatum/Phenylephrine/Shark Liver Oil Oint 57 GM Tube RECTAL SCH ×2 (09:18→21:39)
[2017-06-22] MEDS ORDERED: Piperacillin/Tazobactam 2.25 GM in Sodium Chloride 0.9% 100 ML IV SCH (13:24)
[2017-06-22] MEDS: Nystatin Susp 100,000 Unit/ML 5 ML UD Cup PO SCH ×3 (14:31→21:45)
[2017-06-22] MEDS: Azithromycin 500 MG in Sodium Chloride 0.9% 250 ML IV SCH (15:03)
[2017-06-22] MEDS: Piperacillin/Tazobactam 2.25 GM in Sodium Chloride 0.9% 100 ML IV SCH ×2 (16:29→21:48)
[2017-06-22] MEDS: Sodium Chloride 0.9% 10 ML Syringe FLUSH PRN (21:49)
--- NOTE | 2017-06-22 23:10 | PCM.PN ---
- General Info Date of Service: 06/22/17 Subjective Update: Patient had two stools over night, described as mushy in consistency. no blood on stools. tolerating diet. - Patient Data Vitals - Most Recent: Last Vital Signs Temp 98.8 F 06/22/17 20:00 Pulse 72 06/22/17 20:00 Resp 18 06/22/17 20:00 BP 131/68 06/22/17 20:00 Pulse Ox 98 06/22/17 20:00 Weight - Most Recent: 161 lb 5 oz I&O - Last 24 Hours: Intake & Output 06/22/17 06/22/17 06/23/17 14:59 22:59 06:59 Intake Total 540 300 Output Total 450 Balance 90 300 Lab Results Last 24 Hours: Laboratory Results - last 24 hr 06/22/17 Range/Units 06:16 WBC 23.5 H (5.0-10.0) 10^3/uL RBC 3.60 L (4.2-5.4) 10^6/uL Hgb 12.0 (12.0-16.0) g/dL Hct 36.5 L (37.0-47.0) % MCV 101.4 H (80-100) fL MCH 33.3 (27.0-34.0) pg MCHC 32.9 L (33.0-35.0) g/dL Plt Count 248 (150-450) 10^3/uL Neut % (Auto) 92.4 H (42.2-75.2) % Lymph % (Auto) 3.0 L (20.5-50.1) % Lamb % (Auto) 4.5 (2-8) % Eos % (Auto) 0.0 L (1.0-3.0) % Baso % (Auto) 0.1 (0.0-1.0) % Add Manual Diff Yes Neutrophils % (Manual) 85 H (42-75) % Band Neutrophils % 7 % Lymphocytes % (Manual) 3 L (20-50) % Monocytes % (Manual) 5 (2-8) % Med Orders - Current: Current Medications Acetaminophen (Tylenol) 650 mg PO Q4H PRN PRN Reason: Pain (Mild 1-3)/fever Last Admin: 06/21/17 23:03 Dose: 650 mg Albuterol/Ipratropium (Duoneb 3.0-0.5 Mg/3 Ml) 3 ml NEB Q6HRRT [facility] Last Admin: 06/22/17 18:06 Dose: 3 ml Aspirin (Halfprin) 81 mg PO DAILY [facility] Last Admin: 06/22/17 09:16 Dose: 81 mg Betamethasone/Clotrimazole (Lotrisone) 0 gm TOP BID PRN PRN Reason: Wound Care Last Admin: 06/21/17 15:36 Dose: 1 applic Budesonide (Pulmicort) 0.5 mg NEB BIDRT [facility] Last Admin: 06/22/17 18:06 Dose: 0.5 mg Carvedilol (Coreg) 12.5 mg PO BIDMEALS [facility] Last Admin: 06/22/17 18:06 Dose: 12.5 mg Ceftriaxone Sodium (Rocephin) 2 gm IVPUSH Q24H [facility] Last Admin: 06/22/17 09:16 Dose: 2 gm Ciprofloxacin (Ciloxan 0.3% Ophth Soln) 0 ml EYEBOTH Q4HWA [facility] Last Admin: 06/22/17 19:43 Dose: 1 drop Clopidogrel Bisulfate (Plavix) 75 mg PO DAILY [facility] Last Admin: 06/22/17 09:16 Dose: 75 mg Famotidine (Pepcid) 20 mg PO DAILY [facility] Last Admin: 06/22/17 09:16 Dose: 20 mg Azithromycin 500 mg/ Sodium (Chloride) 250 mls @ 250 mls/hr IV Q24H [facility] Last Admin: 06/22/17 15:03 Dose: 125 mls/hr Piperacillin Sod/Tazobactam (Sod 2.25 gm/ Sodium Chloride) 100 mls @ 200 mls/ hr IV Q6H [facility] Last Admin: 06/22/17 21:48 Dose: 200 mls/hr Lorazepam (Ativan) 0.25 mg PO TID PRN PRN Reason: Anxiety Last Admin: 06/21/17 23:02 Dose: 0.25 mg Methylprednisolone Sodium Succinate (Solu-Medrol) 40 mg IVPUSH Q12H [facility] Last Admin: 06/22/17 18:05 Dose: 40 mg Metronidazole (Metronidazole) 500 mg PO TID@0600,1400,2200 [facility] Last Admin: 06/22/17 21:45 Dose: 500 mg Nystatin (Nystop) 0 gm TOP BID [facility] Last Admin: 06/22/17 21:40 Dose: 1 applic Nystatin (Nystatin Crm) 0 gm TOP QID PRN PRN Reason: Rash Nystatin (Mycostatin) 5 ml PO QID [facility] Last Admin: 06/22/17 21:45 Dose: 5 ml Phenyleph/Shark Oil/Min Oil/Petrol (Preparation H Oint) 0 gm RECTAL BID [facility] Last Admin: 06/22/17 21:39 Dose: 1 applic Promethazine HCl (Phenergan) 25 mg IM Q6H PRN PRN Reason: Nausea/Vomiting Sodium Chloride (Saline Flush) 10 ml FLUSH ASDIRECTED PRN PRN Reason: Keep Vein Open Last Admin: 06/22/17 21:49 Dose: 10 ml Discontinued Medications Albuterol/Ipratropium (Duoneb 3.0-0.5 Mg/3 Ml) 3 ml NEB ONETIME ONE Stop: 06/15/17 11:06 Last Admin: 06/15/17 11:16 Dose: 3 ml Albuterol/Ipratropium (Duoneb 3.0-0.5 Mg/3 Ml) 3 ml NEB Q6H [facility] Last Admin: 06/17/17 12:49 Dose: Not Given Albuterol/Ipratropium (Duoneb 3.0-0.5 Mg/3 Ml) Confirm Administered Dose 3 ml .ROUTE .STK-MED ONE Stop: 06/16/17 10:40 Last Admin: 06/17/17 12:44 Dose: 3 ml Bumetanide (Bumex) 1 mg PO DAILY [facility] Last Admin: 06/16/17 08:00 Dose: 1 mg Bumetanide (Bumex) 2 mg IVPUSH ONETIME ONE Stop: 06/19/17 10:55 Last Admin: 06/19/17 12:08 Dose: 2 mg Carvedilol (Coreg) 12.5 mg PO BID [facility] Last Admin: 06/17/17 09:10 Dose: 12.5 mg Furosemide (Lasix) 40 mg IVPUSH NOW ONE Stop: 06/19/17 10:03 Last Admin: 06/19/17 11:54 Dose: Not Given Heparin Sodium (Porcine) (Heparin Sodium) 5,000 units SUBCUT Q8HR [facility] Last Admin: 06/17/17 08:38 Dose: Not Given Sodium Chloride (Normal Saline) 1,000 mls @ 75 mls/hr IV ASDIRECTED [facility] Last Admin: 06/17/17 01:14 Dose: 75 mls/hr Azithromycin 500 mg/ Sodium (Chloride) 250 mls @ 250 mls/hr IV Q24H [facility] Last Admin: 06/15/17 16:05 Dose: Not Given Piperacillin Sod/Tazobactam (Sod 2.25 gm/ Sodium Chloride) 50 mls @ 100 mls/hr IV Q6H [facility] Last Admin: 06/15/17 16:06 Dose: Not Given Piperacillin Sod/Tazobactam (Sod 2.25 gm/ Sodium Chloride) 50 mls @ 100 mls/hr IV Q6H [facility] Last Admin: 06/17/17 10:43 Dose: Not Given Piperacillin Sod/Tazobactam (Sod 2.25 gm/ Sodium Chloride) 50 mls @ 100 mls/hr IV Q6HR [facility] Last Admin: 06/21/17 15:49 Dose: 100 mls/hr Piperacillin Sod/Tazobactam (Sod 2.25 gm/ Sodium Chloride) 50 mls @ 100 mls/hr IV Q6H [facility] Last Admin: 06/22/17 09:37 Dose: 100 mls/hr Methylprednisolone Sodium Succinate (Solu-Medrol) 40 mg IVPUSH Q8H [facility] Last Admin: 06/15/17 16:05 Dose: Not Given Methylprednisolone Sodium Succinate (Solu-Medrol) 40 mg IVPUSH Q8H [facility] Last Admin: 06/22/17 06:12 Dose: 40 mg Metronidazole (Metronidazole) 250 mg PO TID@0600,1400,2200 [facility] Last Admin: 06/22/17 06:12 Dose: 250 mg Nystatin (Nystop) 0 gm TOP ONETIME ONE Stop: 06/18/17 19:16 Last Admin: 06/18/17 19:22 Dose: 1 applic Potassium Chloride (Klor-Con 10) 40 meq PO BIDMEALS [facility] Last Admin: 06/19/17 08:27 Dose: 40 meq Potassium Chloride (Klor-Con 10) 20 meq PO BIDMEALS [facility] Last Admin: 06/20/17 08:28 Dose: Not Given - Exam General: Other (sleepy but arousable) Lungs: Normal Respiratory Effort Cardiovascular: Regular Rate, Regular Rhythm GI/Abdominal Exam: Normal Bowel Sounds, Soft Extremities: No Pedal Edema - Problem List Review Problem List Initiated/Reviewed/Updated: Yes - My Orders Last 24 Hours: My Active Orders 06/22/17 10:54 metroNIDAZOLE 500 mg PO TID@0600,1400,2200 06/22/17 13:00 Nystatin [Mycostatin] 5 ml PO QID 06/22/17 18:00 methylPREDNISolone Sod Succ [Solu-MEDROL] 40 mg IVPUSH Q12H 06/23/17 06:00 BASIC METABOLIC PANEL,BMP [CHEM] Routine CBC WITH MANUAL DIFF [HEME] Routine - Plan Plan:: LEUKOCYTOSIS - multifactorial: steroid use versus underlying infection, GI source/ pulmonary source - she remains afebrile, blood cultures unrevearling - repeat CBC DIARRHEA - started on FLAGYl, await Cdiff results - precautions advised. may benefit from probiotics COPD exacerbations - maintain good oxygen on supplementation, start to taper down steroid use - on azithromycin and zosyn - continue with nebulizations history of systolic congestive heart failure with ischemic cardiomyopathy, - clinically stable History of coronary artery disease -Continue aspirin, Plavix DVT prophylaxis with subcutaneous heparin WEAKNESS - PT ot were consulted #10 CODE STATUS : DO NOT RESUSCITATE, DO NOT INTUBATE
[2017-06-23] MEDS: Albuterol/Ipratropium 3.0-0.5 MG/3 ML Neb Soln NEB SCH ×3 (01:14→13:02)
[2017-06-23] MEDS: Piperacillin/Tazobactam 2.25 GM in Sodium Chloride 0.9% 100 ML IV SCH ×2 (02:55→09:57)
[2017-06-23] MEDS: metroNIDAZOLE 250 MG Tab PO SCH ×2 (05:34→14:29)
[2017-06-23] MEDS: methylPREDNISolone Sodium Succinate 40 MG/1 ML SDV IVPUSH SCH (05:35)
[2017-06-23] MEDS: Budesonide 0.5 MG/2 ML Neb Susp NEB SCH (07:28)
[2017-06-23 07:31] LABS: ANION GAP 11.9
[2017-06-23] MEDS: Ciprofloxacin 0.3% Ophth Soln 2.5 ML Bottle EYEBOTH SCH ×2 (09:51→13:01)
[2017-06-23] MEDS: cefTRIAXone 2 GM Vial IVPUSH SCH (09:52)
[2017-06-23] MEDS: Famotidine 20 MG Tab PO SCH (09:57)
[2017-06-23] MEDS: Nystatin Topical Powder 30 GM Bottle TOP SCH (09:58)
[2017-06-23] MEDS: Nystatin Susp 100,000 Unit/ML 5 ML UD Cup PO SCH ×2 (09:58→13:01)
[2017-06-23] MEDS: Aspirin 81 MG Tab.EC PO SCH (09:58)
[2017-06-23] MEDS: Clopidogrel 75 MG Tab PO SCH (09:58)
[2017-06-23] MEDS: Betamethasone Dipropionate/Clotrimazole 0.05-1% Crm 15 GM Tube TOP PRN (09:59)
[2017-06-23] MEDS: Mineral Oil/Petrolatum/Phenylephrine/Shark Liver Oil Oint 57 GM Tube RECTAL SCH (09:59)
[2017-06-23] MEDS: Carvedilol 6.25 MG Tab PO SCH (10:00)
[2017-06-23 11:09] VITALS: BP 111/46
--- NOTE | 2017-07-08 12:30 | DISCH ---
FINAL DIAGNOSES: 1. Leukocytosis. 2. Diarrhea. 3. Chronic obstructive pulmonary disease exacerbation. 4. History of congestive heart failure. 5. History of coronary artery disease. BRIEF HISTORY AND PHYSICAL EXAMINATION: The patient is an 82-year-old female, admitted acute stay, last 06/15/2017, because of acute hypoxemic hypercarbic respiratory failure when the patient presented with cough and fever. She was also noted to have altered sensorium. PAST MEDICAL HISTORY: COPD, CHF, CAD, CKD. DOCUMENTED PHYSICAL EXAMINATION ON ADMISSION: Vital Signs: Blood pressure 123/61, heart rate of 71 beats per minute, respirations 24, pulse ox 52, temperature 36.5. General: The patient was noted to be obtunded. Lungs: Decreased breath sounds. Extremities: Pedal edema. LABORATORY DATA: Workup done in the hospital; initial CBC showed WBC of 10.2, hemoglobin 12.0, and platelets 276. Initial ABG showed pCO2 of 80, pH 7.32, bicarb 39.9. Initial BMP pertinent for creatinine 1.6, bicarb 40, troponin 0.06, repeat 0.05 with BNP at 1040. Leukocytosis noted during admission maximum of 27.3, the latest was 21.3 on discharge. Microbiologic studies showed negative blood culture after 5 days. Negative influenza B and A. C. diff was also negative. HOSPITAL COURSE: The patient admitted under medical-surgical bed. Started on IV antibiotics and IV steroids. Nebulization done. Cardiac medications for her CAD and CHF continued. DVT prophylaxis with heparin. The patient was noted to slowly improve. Patient developed diarrhea, C. diff was tested, was negative. She was empirically started on Flagyl. The patient was able to recover mental cano, more awake than status on admission. Also steroids started to be tapered down and leukocytosis started to trend down. Vital signs on discharge; blood pressure 111/46, heart rate of 75 beats per minute, respirations 20 breaths per minute, oxygen saturation 94 on 2 L. DISCHARGE INSTRUCTIONS: The patient will be discharged back to [facility]. Patient is to be seen by provider within 1 week with repeat CBC to follow leukocytosis. Finish antibiotics. Continued physical therapy at home and to call back the emergency room if with emergent health concerns. [facility] /[id number] [place]
== END 2017-06-23 14:50 | DRG 193 ==
LOC: DL.ED 10:33 → UNDOADMIN 14:10 → DL.MS 14:10
PROVIDERS: ADMIT Internal Medicine; ATTEND Internal Medicine
DX: J44.9 Chronic obstructive pulmonary disease, unspecified (principal); I50.9 Heart failure, unspecified; J18.9 Pneumonia, unspecified organism; J96.02 Acute respiratory failure with hypercapnia; G93.40 Encephalopathy, unspecified; J44.1 Chronic obstructive pulmonary disease with (acute) exacerbation; J44.0 Chronic obstructive pulmonary disease with (acute) lower respiratory infection; N17.9 Acute kidney failure, unspecified; I50.22 Chronic systolic (congestive) heart failure; I25.5 Ischemic cardiomyopathy; Z87.891 Personal history of nicotine dependence; F03.90 Unspecified dementia, unspecified severity, without behavioral disturbance, psychotic disturbance, mood disturbance, and anxiety; E86.0 Dehydration; I25.10 Atherosclerotic heart disease of native coronary artery without angina pectoris; Z66 Do not resuscitate; R19.7 Diarrhea, unspecified; D72.829 Elevated white blood cell count, unspecified
CPT/HCPCS: 36415; 36600; 71045; 80048; 80053; 81001; 82803; 83605; 83880; 84484; 85025; 85027; 87040; 87493; 87804; 93005; 93010; 94640; 94660; 99284; 99285; A9270-GY; J0456; J0696; J1644; J2543; J2920; J7030; J7050; S0171